=== PATIENT | female | born 1980 | race Caucasian/White ===

== ENCOUNTER → 2017-11-01 | Outpatient (CLI) | payer MEDICARE, OTHER ==
[2017-11-01 13:20] LABS: Basophils % (A) 1 %; Eosinophils % (A) 1 %; HCT 45.8 % (34.0-46.0); Lymphocytes # (A) 1.2 k/uL (1.0-4.8); Lymphocytes % (A) 28 %; MCH 33.6 pg (25.0-35.0); MCHC 32.7 g/dL (31.0-37.0); Macrocytosis Slight; Mean Platelet Volume 7.2; Monocytes # (A) 0.3 k/uL (0-1.0); Monocytes % (A) 6 %; Neutrophils # (A) 2.8 k/uL (1.3-7.7); Neutrophils % (A) 63 %; Platelet Count 338 k/uL (150-450); RBC 4.45 m/uL (3.80-5.40); WBC 4.5 k/uL (3.8-10.6)
[2017-11-01 14:05] LABS: T4, Free (Free Thyroxine) 1.75 ng/dL (0.78-2.19)
== END ==
LOC: LABWHC1 13:09
PROVIDERS: ATTEND Internal Medicine Critical Care Medicine
DX: Z00.00 Encounter for general adult medical examination without abnormal findings (principal); E55.9 Vitamin D deficiency, unspecified; J30.9 Allergic rhinitis, unspecified; M10.9 Gout, unspecified; E03.9 Hypothyroidism, unspecified
CPT/HCPCS: 36415; 80061; 82306; 84439; 84443; 85025

== ENCOUNTER 2019-02-21 12:38 | Inpatient (IN) | payer MEDICARE, OTHER ==
[2019-02-21] MEDS ORDERED: SODIUM CHLORIDE 0.9% 1,000 ML IV ONE (13:42)
[2019-02-21 14:43] LABS: Basophils % (A) 0 %; Eosinophils # (A) 0.1 k/uL (0-0.7); Eosinophils % (A) 1 %; HCT 46.5 % (34.0-46.0); HGB 15.5 gm/dL (11.4-16.0); Lymphocytes # (A) 0.4 k/uL (1.0-4.8); Lymphocytes % (A) 2 %; MCH 33.9 pg (25.0-35.0); MCHC 33.4 g/dL (31.0-37.0); MCV 101.8 fL (80.0-100.0); Macrocytosis Slight; Mean Platelet Volume 7.3; Monocytes # (A) 0.6 k/uL (0-1.0); Monocytes % (A) 3 %; Neutrophils # (A) 21.5 k/uL (1.3-7.7); Neutrophils % (A) 95 %; Platelet Count 383 k/uL (150-450); RBC 4.57 m/uL (3.80-5.40); RDW 14.4 % (11.5-15.5); WBC 22.8 k/uL (3.8-10.6)
[2019-02-21 14:50] LABS: ALT 14 U/L (9-52); AST 16 U/L (14-36); African American GFR (CKD) >90 (>60 ml/min/1.73 sqM); Albumin 3.8 g/dL (3.5-5.0); Alkaline Phosphatase 76 U/L (38-126); Amylase 53 U/L (30-110); Anion Gap 11 mmol/L; Blood Urea Nitrogen 9 mg/dL (7-17); Calcium 8.7 mg/dL (8.4-10.2); Carbon Dioxide 20 mmol/L (22-30); Chloride 103 mmol/L (98-107); Glucose 136 mg/dL (74-99); Lipase 145 U/L (23-300); Potassium 4.5 mmol/L (3.5-5.1); Sodium 134 mmol/L (137-145); Total Bilirubin 0.8 mg/dL (0.2-1.3)
[2019-02-21 15:01] LABS: Budding Yeast,Urine Many /hpf; Mucus,Urine Few /hpf; RBC,Urine >182 /hpf (0-5); Squamous Epithelial Cell,Urine 7 /hpf (0-4); WBC,Urine >182 /hpf (0-5)
[2019-02-21 15:02] LABS: Appearance,Urine Bloody (Clear); Color,Urine Red
--- NOTE | 2019-02-21 15:03 | XR ---
EXAMINATION TYPE: XR chest 2V DATE OF EXAM: 02/21/2019 COMPARISON: NONE TECHNIQUE: PA and lateral views submitted. HISTORY: Pain FINDINGS: The lungs are clear and there is no pneumothorax, pleural effusion, or focal pneumonia. Hypertrophic change of the spine. Mild hyperinflation of the lungs. IMPRESSION: 1. No acute process.
--- NOTE | 2019-02-21 15:28 | CT ---
EXAMINATION TYPE: CT abdomen pelvis w con DATE OF EXAM: 02/21/2019 COMPARISON: None HISTORY: abdominal pain, vomiting CT DLP: 567.8 mGycm Automated exposure control for dose reduction was used. CONTRAST: CT scan of the abdomen pelvis is performed with IV Contrast, patient injected with 100 mL of Isovue 3 00. FINDINGS- LUNG BASES-small pericardial effusion. LIVER/GB-there is severe gallbladder wall thickening and there is diffuse inflammatory change in the right upper quadrant with gallbladder distention. No definite gallstones are seen. There appears to b e pericholecystic fluid. Findings are suggestive of cholecystitis. Mild central intrahepatic biliary dilation noted. PANCREAS-inflammatory change in the right upper quadrant is seen adjacent to the pancreatic head. SPLEEN- No gross abnormality is seen. ADRENALS- No gross abnormality is seen. KIDNEYS/BLADDER- no hydronephrosis nephrolithiasis or renal mass. BOWEL-bowel gas pattern is nonspecific. Appendix is not seen with certainty. Small hiatal hernia note d. Mild diverticulosis sigmoid colon. LYMPH NODES- No greater than 1cm abdominal or pelvic lymph nodes areappreciated. OSSEOUS STRUCTURES- No significant abnormality is seen. OTHER- aorta of normal caliber. Diffuse inflammatory changes in the right upper quadrant. Etiology m ost likely gallbladder correlate clinically for primary or secondary involvement of the gastric antru m, duodenal bulb, or pancreas. Aorta of normal caliber. Mesenteric blood vessels enhance normally portal vein enhances normally. Sma ll amount of free fluid is seen in the pelvis. Bladder is decompressed and limited in assessment. Hyp odensity within the lower uterine segment is nonspecific by CAT scan. IMPRESSION- 1. Bladder is distended with the wall thickening and pericholecystic fluid and there is diffuse infla mmatory change in the right upper quadrant in a pattern most typical of acute cholecystitis. No defin ite gallstones. 2. Diffuse inflammatory changes in the right upper quadrant is seen adjacent to the gallbladder as we ll as the pancreatic head, duodenum and gastric antrum. It does appear to be wall the duodenum and il l definition of the peripancreatic fat around the pancreatic head. This could be secondary involvemen t from severe acute cholecystitis. Correlate clinically to exclude peptic ulcer disease, duodenitis, gastritis or pancreatitis. 3. The heart is only partially included but there does appear to be evidence of a small pericardial e ffusion. Correlate clinically. 4. Small amount of free fluid in the pelvis. Lower uterine segment\endocervical canal is somewhat het erogeneous recommend follow-up pelvic ultrasound.
[2019-02-21] MEDS ORDERED: PIPERACILLIN-TAZOBACTAM 3.375 GM in SODIUM CHLORIDE 0.9% 100 ML IVPB STA (15:50)
--- NOTE | 2019-02-21 16:31 | US ---
EXAMINATION TYPE: US abdomen limited DATE OF EXAM: 02/21/2019 COMPARISON: CT 02/21/2019 CLINICAL HISTORY: cholecystitis. Special needs patient, limited exam due to overlying bowel gas EXAM MEASUREMENTS: Liver Length: 12.8 cm Gallbladder Wall: 0.6 cm CBD: 0.6 cm Right Kidney: 9.0 x 4.5 x 4.3 cm Pancreas: Obscured by bowel gas Liver: Heterogeneous Gallbladder: Stone visualized within neck measuring 2 cm. Pericholecystic fluid visualized, wall thi ckened Evidence for sonographic Joel's sign: Yes CBD: Measuring upper limits of normal, distal portion obscured by bowel gas Right Kidney: No hydronephrosis or masses seen IMPRESSION: 1. Probable fatty liver. 2. Gallbladder wall thickening with cholelithiasis and pericholecystic fluid compatible with acute ch olecystitis.
[2019-02-21] MEDS ORDERED: ONDANSETRON 4 MG/2 ML VIAL IVP STA (16:34)
[2019-02-21] MEDS ORDERED: MORPHINE SULFATE 2 MG/ML SYRINGE IVP STA (16:34)
[2019-02-21] MEDS ORDERED: LEVOFLOXACIN 250MG-D5W PMX 750 MG in DEXTROSE/WATER 1 50ML.BAG IVPB STA (16:36)
[2019-02-21] MEDS ORDERED: metroNIDAZOLE-NS PMX 500 MG in SALINE 1 100ML.BAG IVPB STA (16:36)
[2019-02-21] MEDS ORDERED: LEVOFLOXACIN 750MG-D5W PMX 750 MG in DEXTROSE/WATER 1 150ML.BAG IVPB STA (16:38)
[2019-02-21] MEDS ORDERED: NALOXONE 0.4 MG/ML 1 ML VIAL IV PRN (17:00)
--- NOTE | 2019-02-21 17:07 | ED ---
Nausea/Vomiting/Diarrhea HPI - General Chief complaint: Nausea/Vomiting/Diarrhea Stated complaint: Vomiting Time Seen by Provider: 02/21/19 13:36 Source: patient, family Mode of arrival: ambulatory - History of Present Illness Initial comments: 38-year-old female history of Down syndrome and previous. Oxygen presents today for chief complaint of bilious vomiting. Patient is nonverbal. Mother states patient has-been vomiting for the past 23 days. Keep anything down. She states she is coughing as if she is in pain. She cannot really localize the tenderness. She states patient is currently menstruating this rubbing the upper stomach. Mom denies any diarrhea she denies any hematemesis melena or hematochezia. Remaining review of systems negative per mother. - Related Data Home Medications Medication Instructions Recorded Confirmed Cholecalciferol (Vitamin D3) 500 unit PO Q7D 02/21/19 02/21/19 [Vitamin D3] Clindamycin Phosphate [Cleocin T] 1 applicate TOPICAL HS 02/21/19 02/21/19 Lansoprazole [Prevacid] 30 mg PO HS 02/21/19 02/21/19 Levothyroxine Sodium [Synthroid] 75 mcg PO DAILY 02/21/19 02/21/19 Loratadine Oral Soln [Claritin 5 mg PO DAILY 02/21/19 02/21/19 Oral Soln] Montelukast Sodium [Singulair] 10 mg PO HS 02/21/19 02/21/19 Norethindrone-E.estradiol-Iron 1 tab PO HS 02/21/19 02/21/19 [Junel Fe 1 mg-20 Mcg Tablet] Pseudoephedrine HCl [Children's 15 mg PO HS 02/21/19 02/21/19 Sudafed] Ranitidine Syrup [Zantac Syrup] 75 mg PO QAM 02/21/19 02/21/19 Triamcinolone 0.1% Cream [Kenalog 1 applicatio TOPICAL BID 02/21/19 02/21/19 0.1% Cream] Veramyst 27.5mcg Oral 1 spray EA NOSTRIL BID 02/21/19 02/21/19 Allergies Allergy/AdvReac Type Severity Reaction Status Date / Time [facility] Allergy Unknown Verified 02/21/19 14:25 Review of Systems ROS Statement: Those systems with pertinent positive or pertinent negative responses have been documented in the HPI. ROS Other: All systems not noted in ROS Statement are negative. Past Medical History Past Medical History: GERD/Reflux, Thyroid Disorder History of Any Multi-Drug Resistant Organisms: None Reported Past Surgical History: Adenoidectomy, Ear Surgery, Tonsillectomy Additional Past Surgical History / Comment(s): pancreatic surgery, tongue reduction Past Psychological History: No Psychological Hx Reported Smoking Status: Never smoker Past Alcohol Use History: None Reported Past Drug Use History: None Reported General Exam - General Exam Comments Initial Comments: General: The patient is awake and alert, appears uncomfortable Eye: Pupils are equal, round and reactive to light, extra-ocular movements are intact. No nystagmus. There is normal conjunctiva bilaterally. No signs of icterus. Ears, nose, mouth and throat: There are moist mucous membranes and no oral lesions. Neck: The neck is supple, there is no tenderness or JVD. Cardiovascular: There is a regular rate and rhythm. No murmur, rub or gallop is appreciated. Respiratory: Lungs are clear to auscultation, respirations are non-labored, breath sounds are equal. No wheezes, stridor, rales, or rhonchi. Gastrointestinal: Soft, non-distended, patient tender diffusely upper abdomen without masses or organomegaly noted. There is no rebound or guarding present. No CVA tenderness. Bowel sounds are unremarkable. Musculoskeletal: Normal ROM, no tenderness. Strength 5/5. Sensation intact. Pulses equal bilaterally 2+. Neurological: A&O x 3. CN II-XII intact, There are no obvious motor or sensory deficits. Coordination appears grossly intact. Speech is normal. Skin: Skin is warm and dry and no rashes or lesions are noted. Psychiatric: On verbal, cooperative. Course Vital Signs 02/21/19 12:50 Temperature 98 F Pulse Rate 111 H Respiratory 16 Rate Blood Pressure 92/75 O2 Sat by Pulse 97 Oximetry Medical Decision Making - Medical Decision Making 38-year-old female presenting pain. Nonverbal. Mother states she has been fussy and vomiting. Bilious. CT of the abdomen obtained given patient's nonverbal status and unable to localize pain. Revealing diffuse infiltrate changes in the gallbladder consistent with acute cholecystitis. Ultrasound confirmed acute cholecystitis. No evidence of choledocholithiasis. Patient has leukocytosis.The elevation of alk phos or transaminases. Patient be admitted for surgical removal. Patient's family requesting Dr. Case. Patient ordered NPO, given metronidazole and levoquin. IV analgesic. Medicine on consult. Patient family agreeable [facility] careplan and admission. Dr Freeman spoke with Dr. Case. - Lab Data Result diagrams: 02/21/19 14:27 02/21/19 14:27 Lab Results 02/21/19 02/21/19 02/21/19 Range/Units 14:27 14:27 14:27 WBC 22.8 H (3.8-10.6) k/uL RBC 4.57 (3.80-5.40) m/uL Hgb 15.5 (11.4-16.0) gm/dL Hct 46.5 H (34.0-46.0) % MCV 101.8 H (80.0-100.0) fL MCH 33.9 (25.0-35.0) pg MCHC 33.4 (31.0-37.0) g/dL RDW 14.4 (11.5-15.5) % Plt Count 383 (150-450) k/uL Neutrophils % 95 % Lymphocytes % 2 % Monocytes % 3 % Eosinophils % 1 % Basophils % 0 % Neutrophils # 21.5 H (1.3-7.7) k/uL Lymphocytes # 0.4 L (1.0-4.8) k/uL Monocytes # 0.6 (0-1.0) k/uL Eosinophils # 0.1 (0-0.7) k/uL Basophils # 0.0 (0-0.2) k/uL Macrocytosis Slight Sodium 134 L (137-145) mmol/L Potassium 4.5 (3.5-5.1) mmol/L Chloride 103 (98-107) mmol/L Carbon Dioxide 20 L (22-30) mmol/L Anion Gap 11 mmol/L BUN 9 (7-17) mg/dL Creatinine 0.76 (0.52-1.04) mg/dL Est GFR (CKD-EPI)AfAm >90 (>60 ml/min/1.73 sqM) Est GFR (CKD-EPI)NonAf >90 (>60 ml/min/1.73 sqM) Glucose 136 H (74-99) mg/dL Plasma Lactic Acid Keny (0.7-2.0) mmol/L Calcium 8.7 (8.4-10.2) mg/dL Total Bilirubin 0.8 (0.2-1.3) mg/dL AST 16 (14-36) U/L ALT 14 (9-52) U/L Alkaline Phosphatase 76 (38-126) U/L Total Protein 7.0 (6.3-8.2) g/dL Albumin 3.8 (3.5-5.0) g/dL Amylase 53 (30-110) U/L Lipase 145 (23-300) U/L TSH 1.150 (0.465-4.680) mIU/L Urine Color Red Urine Appearance Bloody H (Clear) Urine RBC >182 H (0-5) /hpf Urine WBC >182 H (0-5) /hpf Urine WBC Clumps Many H (None) /hpf Ur Squamous Epith Cells 7 H (0-4) /hpf Urine Mucus Few H (None) /hpf Urine Yeast (Budding) Many H (None) /hpf 02/21/19 Range/Units 14:39 WBC (3.8-10.6) k/uL RBC (3.80-5.40) m/uL Hgb (11.4-16.0) gm/dL Hct (34.0-46.0) % MCV (80.0-100.0) fL MCH (25.0-35.0) pg MCHC (31.0-37.0) g/dL RDW (11.5-15.5) % Plt Count (150-450) k/uL Neutrophils % % Lymphocytes % % Monocytes % % Eosinophils % % Basophils % % Neutrophils # (1.3-7.7) k/uL Lymphocytes # (1.0-4.8) k/uL Monocytes # (0-1.0) k/uL Eosinophils # (0-0.7) k/uL Basophils # (0-0.2) k/uL Macrocytosis Sodium (137-145) mmol/L Potassium (3.5-5.1) mmol/L Chloride (98-107) mmol/L Carbon Dioxide (22-30) mmol/L Anion Gap mmol/L BUN (7-17) mg/dL Creatinine (0.52-1.04) mg/dL Est GFR (CKD-EPI)AfAm (>60 ml/min/1.73 sqM) Est GFR (CKD-EPI)NonAf (>60 ml/min/1.73 sqM) Glucose (74-99) mg/dL Plasma Lactic Acid Keny 1.4 (0.7-2.0) mmol/L Calcium (8.4-10.2) mg/dL Total Bilirubin (0.2-1.3) mg/dL AST (14-36) U/L ALT (9-52) U/L Alkaline Phosphatase (38-126) U/L Total Protein (6.3-8.2) g/dL Albumin (3.5-5.0) g/dL Amylase (30-110) U/L Lipase (23-300) U/L TSH (0.465-4.680) mIU/L Urine Color Urine Appearance (Clear) Urine RBC (0-5) /hpf Urine WBC (0-5) /hpf Urine WBC Clumps (None) /hpf Ur Squamous Epith Cells (0-4) /hpf Urine Mucus (None) /hpf Urine Yeast (Budding) (None) /hpf Disposition Clinical Impression: Cholecystitis Disposition: ADMITTED IP TO THIS [facility] Condition: Stable Is patient prescribed a controlled substance at d/c from ED?: No Referrals: Julia Rm MD [Primary Care Provider] - 1-2 days Time of Disposition: 17:06 Decision to Admit Reason: Admit from EC Decision Date: 02/21/19 Decision Time: 17:07
--- NOTE | 2019-02-21 18:33 | P.GSHP ---
History of Present Illness H&P Date: 02/21/19 Chief Complaint: lethargy, vomiting The patient is a 38 year old female who was brought in by her parents with lethargy, vomiting and looking ill. The patient has Down syndrome and is nonverbal.The patient usually very active. Yesterday morning the parents noted she was very lethargic and either laid in bed or on the floor all day. She had an episode of emesis yesterday. She was essentially the same today so they brought her into the emergency department for evaluation. The patient normally does not complain of pain. They had not noticed any change in appetite until Sunday. No jaundice or obvious fever. She did look clammy. - Constitutional Constitutional: Reports as per HPI Past Medical History Past Medical History: GERD/Reflux, Thyroid Disorder History of Any Multi-Drug Resistant Organisms: None Reported Past Surgical History: Adenoidectomy, Ear Surgery, Tonsillectomy Additional Past Surgical History / Comment(s): Gastrojejunal bypass of an annular pancreas, appendectomy, tongue reduction Past Psychological History: No Psychological Hx Reported Smoking Status: Never smoker Past Alcohol Use History: None Reported Past Drug Use History: None Reported Medications and Allergies Home Medications Medication Instructions Recorded Confirmed Type Cholecalciferol (Vitamin D3) 500 unit PO Q7D 02/21/19 02/21/19 History [Vitamin D3] Clindamycin Phosphate [Cleocin T] 1 applicate TOPICAL HS 02/21/19 02/21/19 History Lansoprazole [Prevacid] 30 mg PO HS 02/21/19 02/21/19 History Levothyroxine Sodium [Synthroid] 75 mcg PO DAILY 02/21/19 02/21/19 History Loratadine Oral Soln [Claritin 5 mg PO DAILY 02/21/19 02/21/19 History Oral Soln] Montelukast Sodium [Singulair] 10 mg PO HS 02/21/19 02/21/19 History Norethindrone-E.estradiol-Iron 1 tab PO HS 02/21/19 02/21/19 History [Junel Fe 1 mg-20 Mcg Tablet] Pseudoephedrine HCl [Children's 15 mg PO HS 02/21/19 02/21/19 History Sudafed] Ranitidine Syrup [Zantac Syrup] 75 mg PO QAM 02/21/19 02/21/19 History Triamcinolone 0.1% Cream [Kenalog 1 applicatio TOPICAL BID 02/21/19 02/21/19 History 0.1% Cream] Veramyst 27.5mcg [place] 1 spray EA NOSTRIL BID 02/21/19 02/21/19 History Allergies Allergy/AdvReac Type Severity Reaction Status Date / Time cefaclor [From [facility]] Allergy Unknown Verified 02/21/19 14:25 Surgical - Exam Osteopathic Statement: *. No significant issues noted on an osteopathic structural exam other than those noted in the History and Physical/Consult. Vital Signs Temp Pulse Resp BP Pulse Ox 98 F 111 H 16 92/75 97 02/21/19 12:50 02/21/19 12:50 02/21/19 12:50 02/21/19 12:50 02/21/19 12:50 - General well developed, well nourished, no distress - Eyes normal ocular movement - Neck trachea midline - Respiratory normal expansion, normal respiratory effort - Cardiovascular Rhythm: regular - Abdomen Abdomen: soft, tender (There is probably tenderness in the right upper quadrant. She raises her eyebrows when palpating the right upper quadrant.), surgical scars (A transverse scars noted in the mid abdomen ) Hernia: no incisional Results - Labs 02/21/19 14:27 02/21/19 14:27 Abnormal Lab Results - Last 24 Hours (Table) 02/21/19 02/21/19 02/21/19 Range/Units 14:27 14:27 14:27 WBC 22.8 H (3.8-10.6) k/uL Hct 46.5 H (34.0-46.0) % MCV 101.8 H (80.0-100.0) fL Neutrophils # 21.5 H (1.3-7.7) k/uL Lymphocytes # 0.4 L (1.0-4.8) k/uL Sodium 134 L (137-145) mmol/L Carbon Dioxide 20 L (22-30) mmol/L Glucose 136 H (74-99) mg/dL Urine Appearance Bloody H (Clear) Urine RBC >182 H (0-5) /hpf Urine WBC >182 H (0-5) /hpf Urine WBC Clumps Many H (None) /hpf Ur Squamous Epith Cells 7 H (0-4) /hpf Urine Mucus Few H (None) /hpf Urine Yeast (Budding) Many H (None) /hpf Diabetes panel 02/21/19 Range/Units 14:27 Sodium 134 L (137-145) mmol/L Potassium 4.5 (3.5-5.1) mmol/L Chloride 103 (98-107) mmol/L Carbon Dioxide 20 L (22-30) mmol/L BUN 9 (7-17) mg/dL Creatinine 0.76 (0.52-1.04) mg/dL Glucose 136 H (74-99) mg/dL Calcium 8.7 (8.4-10.2) mg/dL AST 16 (14-36) U/L ALT 14 (9-52) U/L Alkaline Phosphatase 76 (38-126) U/L Total Protein 7.0 (6.3-8.2) g/dL Albumin 3.8 (3.5-5.0) g/dL Thyroid panel 02/21/19 Range/Units 14:27 TSH 1.150 (0.465-4.680) mIU/L Calcium panel 02/21/19 Range/Units 14:27 Calcium 8.7 (8.4-10.2) mg/dL Albumin 3.8 (3.5-5.0) g/dL Pituitary panel 02/21/19 Range/Units 14:27 Sodium 134 L (137-145) mmol/L Potassium 4.5 (3.5-5.1) mmol/L Chloride 103 (98-107) mmol/L Carbon Dioxide 20 L (22-30) mmol/L BUN 9 (7-17) mg/dL Creatinine 0.76 (0.52-1.04) mg/dL Glucose 136 H (74-99) mg/dL Calcium 8.7 (8.4-10.2) mg/dL TSH 1.150 (0.465-4.680) mIU/L Adrenal panel 02/21/19 Range/Units 14:27 Sodium 134 L (137-145) mmol/L Potassium 4.5 (3.5-5.1) mmol/L Chloride 103 (98-107) mmol/L Carbon Dioxide 20 L (22-30) mmol/L BUN 9 (7-17) mg/dL Creatinine 0.76 (0.52-1.04) mg/dL Glucose 136 H (74-99) mg/dL Calcium 8.7 (8.4-10.2) mg/dL Total Bilirubin 0.8 (0.2-1.3) mg/dL AST 16 (14-36) U/L ALT 14 (9-52) U/L Alkaline Phosphatase 76 (38-126) U/L Total Protein 7.0 (6.3-8.2) g/dL Albumin 3.8 (3.5-5.0) g/dL - Imaging CT scan - abdomen: report reviewed, image reviewed Assessment and Plan (1) Down syndrome Current Visit: Yes Status: Acute Code(s): Q90.9 - DOWN SYNDROME, UNSPECIFIED SNOMED Code(s): 16338670 (2) Annular pancreas Current Visit: Yes Status: Acute Code(s): Q45.1 - ANNULAR PANCREAS SNOMED Code(s): 60548019 (3) Cholecystitis Current Visit: Yes Status: Acute Code(s): K81.9 - CHOLECYSTITIS, UNSPECIFIED SNOMED Code(s): 56711810 Plan: The patient will be admitted. IV fluids and IV antibiotics. DVT and ulcer prophylaxis. Antibiotics or pain medication if needed. Laparoscopic cholecystectomy possible open. The procedure risks and complications were discussed. She is at higher risk for intra-abdominal adhesions due to the upper abdominal surgery. Questions were encouraged and answered. I'll perform this for her tomorrow.
[2019-02-21 21:58] VITALS: BMI 29.9
[2019-02-22] MEDS: metroNIDAZOLE-NS PMX 500 MG in SALINE 1 100ML.BAG IVPB SCH ×3 (00:08→16:12)
[2019-02-22] MEDS: MORPHINE SULFATE 4 MG/ML SYRINGE IV PRN ×2 (00:09→07:51)
[2019-02-22] MEDS: SODIUM CHLORIDE 0.9% 1,000 ML IV SCH ×4 (00:09→23:18)
[2019-02-22] MEDS: PANTOPRAZOLE 40 MG/10 ML VIAL IVP SCH (07:51)
[2019-02-22 08:29] LABS: HGB 12.9 gm/dL (11.4-16.0); MCH 33.7 pg (25.0-35.0); MCHC 31.6 g/dL (31.0-37.0); MCV 106.7 fL (80.0-100.0); Macrocytosis Moderate; Mean Platelet Volume 6.8; Platelet Count 298 k/uL (150-450); RBC 3.84 m/uL (3.80-5.40); RDW 13.5 % (11.5-15.5); WBC 18.4 k/uL (3.8-10.6)
[2019-02-22 08:36] LABS: African American GFR (CKD) >90 (>60 ml/min/1.73 sqM); Albumin 2.7 g/dL (3.5-5.0); Anion Gap 7 mmol/L; Blood Urea Nitrogen 9 mg/dL (7-17); Calcium 7.4 mg/dL (8.4-10.2); Carbon Dioxide 19 mmol/L (22-30); Chloride 108 mmol/L (98-107); Glucose 90 mg/dL (74-99); Sodium 134 mmol/L (137-145); Total Bilirubin 0.9 mg/dL (0.2-1.3); Total Protein 5.6 g/dL (6.3-8.2)
[2019-02-22 08:37] LABS: ALT 18 U/L (9-52); AST 34 U/L (14-36); Alkaline Phosphatase 49 U/L (38-126); Potassium 4.6 mmol/L (3.5-5.1)
[2019-02-22] MEDS ORDERED: IV FLUID CONTINUATION 1,000 ML IV ONE ×2 (09:25)
[2019-02-22] MEDS ORDERED: LIDOCAINE 1% 20 ML VIAL (10MG/ML) FOR IV START INTRADERMA PRN (09:32)
[2019-02-22] MEDS ORDERED: ONDANSETRON 4 MG/2 ML VIAL IVP PRN (09:32)
--- NOTE | 2019-02-22 09:47 | P.PN ---
Progress Note - Text Progress Note Date: 02/22/19 Mothers questions answered. To OR
[2019-02-22] MEDS ORDERED: SCOPOLAMINE 1.5MG/72HR PATCH TRANSDERM ONE (09:49)
[2019-02-22] MEDS ORDERED: DEXAMETHASONE SOD PHOSPHATE 10 MG/ML 1 ML VIAL IV ONE ×2 (09:50)
[2019-02-22] MEDS ORDERED: ONDANSETRON 4 MG/2 ML VIAL IVP ONE (09:52)
[2019-02-22] MEDS ORDERED: NEOSTIGMINE 1 MG/ML 10 ML VIAL ONE (09:58)
[2019-02-22] MEDS ORDERED: GLYCOPYRROLATE 0.2 MG/ML 2 ML VIAL ONE (09:58)
[2019-02-22] MEDS ORDERED: fentaNYL (PF) 50 MCG/ML 2 ML AMP ONE (09:58)
[2019-02-22] MEDS ORDERED: LIDOCAINE 1% INJ 10MG/ML (20 ML MDV) ONE (09:58)
[2019-02-22] MEDS ORDERED: SUCCINYLCHOLINE CHLORIDE 100 MG/5 ML SYR IV ONE (09:58)
[2019-02-22] MEDS ORDERED: PROPOFOL 10 MG/ML 20 ML VIAL IV ONE (09:58)
[2019-02-22] MEDS ORDERED: ROCURONIUM BROMIDE 10 MG/ML 10 ML VIAL IV ONE (09:58)
[2019-02-22] MEDS ORDERED: MIDAZOLAM 2 MG/2 ML VIAL ONE (09:58)
[2019-02-22] MEDS ORDERED: BUPIVACAINE (PF) 0.25% 30 ML VIAL SQ ONE (10:27)
[2019-02-22] MEDS ORDERED: LACTATED RINGERS 1,000 ML IV ONE (11:27)
[2019-02-22] MEDS ORDERED: HYDROmorphone 0.5 MG/0.5 ML SYRINGE IVP PRN (11:49)
[2019-02-22] MEDS ORDERED: traMADol 50 MG TAB PO PRN (11:49)
--- NOTE | 2019-02-22 11:49 | P.OP ---
Date of Procedure: 02/22/19 Preoperative Diagnosis: Cholelithiasis with cholecystitis Postoperative Diagnosis: Cholelithiasis, acute cholecystitis with perforation and abscess Procedure(s) Performed: Attempted laparoscopic cholecystectomy converted to open cholecystectomy Anesthesia: MESERET Surgeon: Theresa Case Estimated Blood Loss (ml): 150 Pathology: other (Gallbladder) Condition: stable Disposition: PACU Indications for Procedure: Patient presented with lethargy and vomiting Description of Procedure: The patient's taken the operative suite where she is prepped and draped in the usual sterile manner under general endotracheal anesthetic. An infraumbilical incision was made. The fascia was grasped and incised. The peritoneum was grasped and incised. A finger sweep is carried out. A balloon trocar is inserted and pneumoperitoneum was established with CO2 gas. Sites are chosen for accessory trochars and these are placed through small skin incisions. The transverse colon was densely adhered to the undersurface of the gallbladder which is inflamed. Dissection was carried out to free up the transverse colon from the gallbladder wall. It was then that there was encountered a abscess with contained perforation. The adhesions medially were much denser than later ally where the abscess was. The she was therefore converted to an open procedure. A right subcostal incision was made. Small bleeding points were controlled with electrocautery. A self-retaining retractor was placed. The gallbladder was dissected free from the undersurface liver in a domed down manner. The remaining adhesions to the transverse colon and its mesentery were taken down. The cystic artery and cystic duct were then able to be identified. They are suture ligated and the gallbladder is removed. The liver bed is examined and small bleeding points are controlled with electrocautery. A drain was placed and brought out through a trocar site. The fascia at the umbilical trocar site was closed with 0 Vicryl. The subcostal incision was closed in a layered manner using 0 PDS. The skin was closed with scott. She tolerated the procedure without difficulty and was taken recovery room in satisfactory condition. According to or personnel, all counts were correct.
[2019-02-22] MEDS ORDERED: KETOROLAC 30 MG/ML 1 ML VIAL IVP SCH (12:00)
[2019-02-22] MEDS: MORPHINE SULFATE 2 MG/ML SYRINGE IV PRN ×3 (12:21→12:47)
[2019-02-22] MEDS: KETOROLAC 30 MG/ML 1 ML VIAL IVP SCH ×2 (12:24→17:46)
[2019-02-22] MEDS: LACTATED RINGERS 1,000 ML IV SCH (13:42)
[2019-02-22] MEDS ORDERED: LEVOFLOXACIN 500MG-D5W PMX 500 MG in DEXTROSE/WATER 1 100ML.BAG IVPB SCH (17:00)
[2019-02-22] MEDS: MONTELUKAST 10 MG TAB PO SCH (21:21)
[2019-02-23] MEDS: metroNIDAZOLE-NS PMX 500 MG in SALINE 1 100ML.BAG IVPB SCH ×2 (00:25→08:40)
[2019-02-23] MEDS: KETOROLAC 30 MG/ML 1 ML VIAL IVP SCH ×5 (00:26→23:52)
[2019-02-23] MEDS: LEVOTHYROXINE 75 MCG TAB PO SCH (05:27)
[2019-02-23] MEDS: SODIUM CHLORIDE 0.9% 1,000 ML IV SCH ×2 (05:28→21:38)
[2019-02-23] MEDS: LACTATED RINGERS 1,000 ML IV SCH (07:01)
[2019-02-23 07:59] LABS: African American GFR (CKD) >90 (>60 ml/min/1.73 sqM); Albumin 2.3 g/dL (3.5-5.0); Anion Gap 8 mmol/L; Blood Urea Nitrogen 10 mg/dL (7-17); Calcium 7.5 mg/dL (8.4-10.2); Carbon Dioxide 18 mmol/L (22-30); Chloride 112 mmol/L (98-107); Glucose 126 mg/dL (74-99); Sodium 138 mmol/L (137-145); Total Bilirubin 0.5 mg/dL (0.2-1.3)
[2019-02-23 08:06] LABS: ALT 43 U/L (9-52); AST 43 U/L (14-36); Alkaline Phosphatase 43 U/L (38-126); Potassium 4.1 mmol/L (3.5-5.1)
[2019-02-23 08:34] LABS: Basophils # (A) 0.1 k/uL (0-0.2); Basophils % (A) 0 %; Eosinophils # (A) 0.2 k/uL (0-0.7); Eosinophils % (A) 1 %; HCT 37.2 % (34.0-46.0); HGB 12.6 gm/dL (11.4-16.0); Lymphocytes # (A) 0.5 k/uL (1.0-4.8); Lymphocytes % (A) 2 %; MCH 35.6 pg (25.0-35.0); MCV 104.7 fL (80.0-100.0); Macrocytosis Slight; Mean Platelet Volume 8.7; Monocytes # (A) 0.7 k/uL (0-1.0); Monocytes % (A) 3 %; Neutrophils # (A) 20.7 k/uL (1.3-7.7); Neutrophils % (A) 93 %; Platelet Count 332 k/uL (150-450); RBC 3.55 m/uL (3.80-5.40); RDW 14.1 % (11.5-15.5); WBC 22.3 k/uL (3.8-10.6)
[2019-02-23] MEDS: PANTOPRAZOLE 40 MG/10 ML VIAL IVP SCH (08:40)
[2019-02-23] MEDS: MORPHINE SULFATE 4 MG/ML SYRINGE IV PRN (11:01)
--- NOTE | 2019-02-23 11:14 | P.PN ---
Subjective Progress Note Date: 02/23/19 Principal diagnosis: Patient is postoperative day one open cholecystectomy for acute cholecystitis with abscess The patient is doing better than preop. The mother says she appears much more alert. Has been ambulating to the bathroom. Mother is not able to get her to cooperate to do coughing or deep breathing. Taking only sips of liquids at this time. No vomiting. Mother did notice teased grinding today. The patient typically does not complain of any pain. Objective - Vital Signs Vital signs: Vital Signs Temp 97.6 F 02/23/19 07:00 Pulse 107 H 02/23/19 07:00 Resp 14 02/23/19 07:00 BP 102/64 02/23/19 07:00 Pulse Ox 93 L 02/23/19 07:00 Intake & Output 02/22/19 02/23/19 02/23/19 18:59 06:59 18:59 Intake Total 1300 400 Output Total 210 130 20 Balance 1090 270 -20 Intake: IV 1300 Intake, IV Titration 400 Amount Levofloxacin 500Mg-D5w 100 Pmx 500 mg In Dextrose/ Water 1 100ml.bag @ 100 mls/hr IVPB Q24H DANNIE Rx#: [id number] Sodium Chloride 0.9% 1, 200 000 ml @ 100 mls/hr IV . Q10H DANNIE Rx#:[id number]-NS PMX 500 100 mg In Saline 1 100ml.bag @ 100 mls/hr IVPB Q8HR DANNIE Rx#:[id number] Output: Drainage 30 80 20 Abdomen 30 80 20 Urine 50 Estimated Blood Loss 180 Other: Voiding Method Toilet Toilet Toilet # Voids 1 - Constitutional General appearance: Present: cooperative, no acute distress - Respiratory Respiratory: bilateral: CTA, diminished (At the bases. Patient does not cooperate with taking a deep breath) - Cardiovascular Rhythm: regular - Gastrointestinal General gastrointestinal: Present: decreased bowel sounds, soft Localized gastrointestinal: surgical scar: diffuse (Dressing intact clean and dry, UVALDO serosanguineous) - Labs CBC & Chem 7: 02/23/19 07:14 02/23/19 07:14 Labs: Abnormal Lab Results - Last 24 Hours (Table) 02/23/19 02/23/19 Range/Units 07:14 07:14 WBC 22.3 H (3.8-10.6) k/uL RBC 3.55 L (3.80-5.40) m/uL MCV 104.7 H (80.0-100.0) fL MCH 35.6 H (25.0-35.0) pg Neutrophils # 20.7 H (1.3-7.7) k/uL Lymphocytes # 0.5 L (1.0-4.8) k/uL Chloride 112 H (98-107) mmol/L Carbon Dioxide 18 L (22-30) mmol/L Glucose 126 H (74-99) mg/dL Calcium 7.5 L (8.4-10.2) mg/dL AST 43 H (14-36) U/L Total Protein 5.0 L (6.3-8.2) g/dL Albumin 2.3 L (3.5-5.0) g/dL Microbiology - Last 24 Hours (Table) 02/23/19 05:45 Urine Culture - Preliminary Urine,Voided Assessment and Plan (1) Down syndrome Current Visit: Yes Status: Acute Code(s): Q90.9 - DOWN SYNDROME, UNSPECIFIED SNOMED Code(s): 65989691 (2) Annular pancreas Current Visit: Yes Status: Acute Code(s): Q45.1 - ANNULAR PANCREAS SNOMED Code(s): 25417045 (3) Cholecystitis Current Visit: Yes Status: Acute Code(s): K81.9 - CHOLECYSTITIS, UNSPECIFIED SNOMED Code(s): 08783236 (4) Abscess, gallbladder Current Visit: Yes Status: Acute Code(s): K81.0 - ACUTE CHOLECYSTITIS SNOMED Code(s): 70296204 Plan: Patient is doing fairly well. I asked nursing to give her some pain medication as the teeth grinding may be a indication of pain. Since she will not cooperate with any sort of pulmonary toilet, and asked the mother to try to encourage ambulation. We'll get her up to a chair. Monitor her oral intake. Continue IV antibiotics. Progressing slowly.
[2019-02-23] MEDS: LORATADINE 10 MG TAB PO SCH (12:30)
[2019-02-23] MEDS: FLUTICASONE 50MCG/SPRAY NASAL 16GM EA NOSTRIL SCH (12:30)
--- NOTE | 2019-02-23 12:51 | P.CON ---
Consult Note - . Consult date: 02/22/19 Assessment/Plan:: Reason for consult _ management of chronic medical conditions Ms. Zavala is a 38-year-old female with Down syndrome, GERD, thyroid disorder brought in by her parents for lethargy and vomiting. The patient is nonverbal. Usually the patient is very active but was found to be lethargic by her parents. Patient was one episode of vomiting. In the emergency patient had an ultrasound of the abdomen and also CAT scan of the abdomen showing severe acute cholecystitis. Patient was taken to the OR this morning, they attempted laparoscopic cholecystectomy but eventually it was converted to open cholecystectomy. The postoperative diagnosis was acute cholecystitis with perforation and abscess. Patient has been transferred to the floors after the surgery. The patient is lying comfortably in the bed. Most of the history is obtained from her mother who is at the bedside and her caregiver. Her mom mentions that she got out of the bed earlier to go to the bathroom. She thinks she looks much better than before taking to the surgery. The patient is also having her periods currently. The patient's urine was positive for mucus and budding yeast, mom does not report any change in her urinary regimen. She denies noticing any strong odor. Patient is currently on antibiotics in the form of levofloxacin and Flagyl. Review of systems -could not be done as the patient is nonverbal. Past Medical History Past Medical History: GERD/Reflux, Thyroid Disorder Additional Past Medical History / Comment(s): vitamin d deficency, down syndrome History of Any Multi-Drug Resistant Organisms: MRSA Date of last positivie culture/infection: 1998 MDRO Source:: foot Past Surgical History: Adenoidectomy, Ear Surgery, Tonsillectomy Additional Past Surgical History / Comment(s): Gastrojejunal bypass of an annular pancreas, tongue reduction Past Anesthesia/Blood Transfusion Reactions: Postoperative Nausea & Vomiting (PONV) Past Psychological History: No Psychological Hx Reported Smoking Status: Never smoker Past Alcohol Use History: None Reported Past Drug Use History: None Reported - Past Family History Mother Family Medical History: Thyroid Disorder Father Family Medical History: No Reported History Medications and Allergies Home Medications Medication Instructions Recorded Confirmed Type Cholecalciferol (Vitamin D3) 500 unit PO Q7D 02/21/19 02/21/19 History [Vitamin D3] Clindamycin Phosphate [Cleocin T] 1 applicate TOPICAL HS 02/21/19 02/21/19 History Lansoprazole [Prevacid] 30 mg PO HS 02/21/19 02/21/19 History Levothyroxine Sodium [Synthroid] 75 mcg PO DAILY 02/21/19 02/21/19 History Loratadine Oral Soln [Claritin 5 mg PO DAILY 02/21/19 02/21/19 History Oral Soln] Montelukast Sodium [Singulair] 10 mg PO HS 02/21/19 02/21/19 History Norethindrone-E.estradiol-Iron 1 tab PO HS 02/21/19 02/21/19 History [Junel Fe 1 mg-20 Mcg Tablet] Pseudoephedrine HCl [Children's 15 mg PO HS 02/21/19 02/21/19 History Sudafed] Ranitidine Syrup [Zantac Syrup] 75 mg PO QAM 02/21/19 02/21/19 History Triamcinolone 0.1% Cream [Kenalog 1 applicatio TOPICAL BID 02/21/19 02/21/19 History 0.1% Cream] Veramyst 27.5mcg [place] 1 spray EA NOSTRIL BID 02/21/19 02/21/19 History Allergies Allergy/AdvReac Type Severity Reaction Status Date / Time cefaclor [From [facility]] Allergy Unknown Verified 02/21/19 14:25 Physical Exam Vitals: Vital Signs Temp Pulse Pulse Pulse Resp BP BP 02/22/19 15:15 91 108/70 02/22/19 15:00 97 103/69 02/22/19 14:45 90 106/71 02/22/19 14:30 86 103/62 02/22/19 14:15 99 110/75 02/22/19 14:00 100 115/74 02/22/19 13:45 101 H 118/75 02/22/19 13:30 101 H 116/77 02/22/19 13:15 97.7 F 106 H 16 86/61 02/22/19 13:00 111 H 16 115/66 02/22/19 12:45 116 H 16 171/74 02/22/19 12:32 107 H 16 166/72 02/22/19 12:24 105 H 16 169/77 02/22/19 12:15 116 H 18 192/90 02/22/19 12:09 116 H 18 153/68 02/22/19 11:54 97.8 F 115 H 18 156/73 02/22/19 09:30 98.4 F 113 H 18 127/69 02/22/19 07:00 98.3 F 111 H 17 110/69 02/22/19 02:00 98.5 F 115 H 16 90/58 02/22/19 00:00 115 H 02/21/19 21:45 97.7 F 116 H 14 90/64 02/21/19 19:19 118 H 17 107/62 Pulse Ox 02/22/19 15:15 02/22/19 15:00 02/22/19 14:45 02/22/19 14:30 02/22/19 14:15 02/22/19 14:00 02/22/19 13:45 02/22/19 13:30 02/22/19 13:15 93 L 02/22/19 13:00 99 02/22/19 12:45 100 02/22/19 12:32 100 02/22/19 12:24 100 02/22/19 12:15 100 02/22/19 12:09 100 02/22/19 11:54 94 L 02/22/19 09:30 94 L 02/22/19 07:00 94 L 02/22/19 02:00 95 02/22/19 00:00 02/21/19 21:45 97 02/21/19 19:19 95 Intake and Output 02/22/19 02/22/19 02/22/19 06:59 14:59 22:59 Intake Total 900 1300 Output Total 180 30 Balance 900 1120 -30 Intake: IV 1300 Intake, IV Titration 900 Amount Sodium Chloride 0.9% 1, 800 000 ml @ 100 mls/hr IV . Q10H [facility] Rx#:[id number] metroNIDAZOLE-NS PMX 500 100 mg In Saline 1 100ml.bag @ 100 mls/hr IVPB Q8HR [facility] Rx#:[id number] Output: Drainage 30 Abdomen 30 Estimated Blood Loss 180 Other: Voiding Method Toilet # Voids 1 Physical exam GEN. APPEARANCE: alert, in no apparent distress HEAD EXAM: atraumatic, normocephalic, normal inspection EYE EXAM: normal appearance, PERRL, EOMI. Absent: scleral icterus, conjunctival injection, periorbital swelling NECK EXAM: Short and webbed RESPIRATORY EXAM: normal lung sounds bilaterally. Slightly diminished at the lower lung bases CARDIOVASCULAR EXAM: regular rate, normal rhythm, normal heart sounds. positive for systolic murmur GI/ABDOMINAL EXAM: soft, hypoactive bowel sounds. UVALDO drain in place with 20-25 mL of sanguinous fluid EXTREMITIES EXAM: No bilateral peripheral edema NEUROLOGICAL EXAM: Patient is awake and follows simple commands. She is nonver bal. SKIN EXAM: warm, dry, intact, normal color. Absent: rash Results CBC & Chem 7: 02/22/19 07:38 02/22/19 07:38 Labs: Abnormal Lab Results - Last 24 Hours (Table) 02/22/19 02/22/19 Range/Units 07:38 07:38 WBC 18.4 H (3.8-10.6) k/uL MCV 106.7 H (80.0-100.0) fL Sodium 134 L (137-145) mmol/L Chloride 108 H (98-107) mmol/L Carbon Dioxide 19 L (22-30) mmol/L Calcium 7.4 L (8.4-10.2) mg/dL Total Protein 5.6 L (6.3-8.2) g/dL Albumin 2.7 L (3.5-5.0) g/dL Thrombosis Risk Factor Assmnt - Choose All That Apply Each Factor Represents 1 point: Obesity (BMI >25) Other Risk Factors: No Other congenital or acquired thrombophilia - If yes, enter type in comment: No Thrombosis Risk Factor Assessment Total Risk Factor Score: 1 Thrombosis Risk Factor Assessment Level: Low Risk ASSESSMENT Acute cholecystitis- status post open cholecystectomy Acute cholecystitis with perforation and abscess Down syndrome GERD /Reflux disease Thyroid disorder History of MRSA infection History of adenoidectomy and tonsillectomy Tongue reduction surgery 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 As the patient's urine culture was showing mucus and meninges urine culture has been ordered. Patient seems to be asymptomatic currently so we'll wait for the cultures to be packed. Mom has questions regarding her medication regimen, all her questions were answered. Further recommendations to follow depending on the progress of the patient.
--- NOTE | 2019-02-23 12:58 | P.PN ---
Subjective Progress Note Date: 02/23/19 Principal diagnosis: Acute cholecystitis- status post open cholecystectomy post op day 1 Ms. Zavala is a 38 female with Down syndrome, GERD, thyroid disorder brought in for lethargy and vomiting. Patient had an ultrasound and a CAT scan of the abdomen showing acute cholecystitis. So the patient was taken for open cholecystectomy and she is postop day 1 today. Patient is nonverbal so most of the history is obtained from her mother who is her caregiver. As per the nursing staff report no acute overnight events reported. Mom mentions that she has noticed the patient has been grinding her teeth more often. Usually the patient does not complain of any pain. Patient did not have a bowel movement. Mom mentions about her ALLERGIES and that she would need Claritin and Flonase to keep her airways patent. Patient's medications and labs have been reviewed: Active Medications Fluticasone Propionate (Flonase Nasal [place]) 1 spray EA NOSTRIL DAILY [facility] Last Admin: 02/23/19 12:30 Dose: Not Given Documented by: Hydromorphone HCl (Dilaudid) 0.5 mg IVP Q3HR PRN PRN Reason: Moderate to Severe Pain Sodium Chloride (Saline 0.9%) 1,000 mls @ 100 mls/hr IV .Q10H [facility] Last Admin: 02/23/19 05:28 Dose: 100 mls/hr Documented by: Levofloxacin 500 mg/ IV (Solution) 100 mls @ 100 mls/hr IVPB Q24H [facility] Last Admin: 02/22/19 17:46 Dose: 100 mls/hr Documented by: Metronidazole 500 mg/ IV (Solution) 100 mls @ 100 mls/hr IVPB Q8HR [facility] Last Admin: 02/23/19 08:40 Dose: 100 mls/hr Documented by: Lactated Ringer's (Lactated Ringers) 1,000 mls @ 20 mls/hr IV .Q24H [facility] Last Admin: 02/23/19 07:01 Dose: Not Given Documented by: Ketorolac Tromethamine (Toradol) 15 mg IVP Q6HR [facility] Stop: 02/24/19 12:01 Last Admin: 02/23/19 12:49 Dose: 15 mg Documented by: Levothyroxine Sodium (Synthroid) 75 mcg PO DAILY@0630 [facility] Last Admin: 02/23/19 05:27 Dose: 75 mcg Documented by: Lidocaine HCl (.Xylocaine 1% Inj (10mg/Ml) For Iv Start) 0.1 ml INTRADERMA PER PROTOCOL PRN PRN Reason: IV Start Loratadine (Claritin) 5 mg PO DAILY [facility] Last Admin: 02/23/19 12:30 Dose: Not Given Documented by: Montelukast Sodium (Singulair) 10 mg PO HS [facility] Last Admin: 02/22/19 21:21 Dose: 10 mg Documented by: Morphine Sulfate (Morphine Sulfate (Inj)) 4 mg IV Q4HR PRN PRN Reason: Severe Pain Last Admin: 02/23/19 11:01 Dose: 4 mg Documented by: Naloxone HCl (Narcan) 0.2 mg IV Q2M PRN PRN Reason: Opioid Reversal Pantoprazole Sodium (Protonix) 40 mg IVP DAILY [facility] Last Admin: 02/23/19 08:40 Dose: 40 mg Documented by: Tramadol HCl (Ultram) 50 mg PO Q6H PRN PRN Reason: Mild to Moderate Pain Objective - Vital Signs Vital signs: Vital Signs Temp 97.6 F 02/23/19 07:00 Pulse 107 H 02/23/19 07:00 Resp 14 02/23/19 07:00 BP 102/64 02/23/19 07:00 Pulse Ox 93 L 02/23/19 07:00 Intake & Output 02/22/19 02/23/19 02/23/19 18:59 06:59 18:59 Intake Total 1300 400 118 Output Total 210 130 20 Balance 1090 270 98 Intake: IV 1300 Intake, IV Titration 400 Amount Levofloxacin 500Mg-D5w 100 Pmx 500 mg In Dextrose/ Water 1 100ml.bag @ 100 mls/hr IVPB Q24H [facility] Rx#: [id number] Sodium Chloride 0.9% 1, 200 000 ml @ 100 mls/hr IV . Q10H [facility] Rx#:[id number] metroNIDAZOLE-NS PMX 500 100 mg In Saline 1 100ml.bag @ 100 mls/hr IVPB Q8HR [facility] Rx#:[id number] Oral 118 Output: Drainage 30 80 20 Abdomen 30 80 20 Urine 50 Estimated Blood Loss 180 Other: Voiding Method Toilet Toilet Toilet # Voids 1 - Exam GEN. APPEARANCE: alert, in no apparent distress HEAD EXAM: atraumatic, normocephalic, normal inspection EYE EXAM: normal appearance, PERRL, EOMI. Absent: scleral icterus, conjunctival injection, periorbital swelling NECK EXAM: Short and webbed RESPIRATORY EXAM: normal lung sounds bilaterally. Slightly diminished at the lower lung bases CARDIOVASCULAR EXAM: regular rate, normal rhythm, normal heart sounds. positive for systolic murmur GI/ABDOMINAL EXAM: soft, hypoactive bowel sounds. UVALDO drain in place with 30 mL of sanguinous fluid EXTREMITIES EXAM: No bilateral peripheral edema NEUROLOGICAL EXAM: Patient is awake and follows simple commands. She is nonverbal. - Labs CBC & Chem 7: 02/23/19 07:14 02/23/19 07:14 Labs: Abnormal Lab Results - Last 24 Hours (Table) 02/23/19 02/23/19 Range/Units 07:14 07:14 WBC 22.3 H (3.8-10.6) k/uL RBC 3.55 L (3.80-5.40) m/uL MCV 104.7 H (80.0-100.0) fL MCH 35.6 H (25.0-35.0) pg Neutrophils # 20.7 H (1.3-7.7) k/uL Lymphocytes # 0.5 L (1.0-4.8) k/uL Chloride 112 H (98-107) mmol/L Carbon Dioxide 18 L (22-30) mmol/L Glucose 126 H (74-99) mg/dL Calcium 7.5 L (8.4-10.2) mg/dL AST 43 H (14-36) U/L Total Protein 5.0 L (6.3-8.2) g/dL Albumin 2.3 L (3.5-5.0) g/dL Microbiology - Last 24 Hours (Table) 02/23/19 05:45 Urine Culture - Preliminary Urine,Voided Assessment and Plan Assessment: ASSESSMENT Acute cholecystitis- status post open cholecystectomy - postoperative day 1 Acute cholecystitis with perforation and abscess Down syndrome GERD /Reflux disease Thyroid disorder History of MRSA infection History of adenoidectomy and tonsillectomy Tongue reduction surgery 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 Discussed with the mom about incentive spirometry, but mom states that she wouldn't do it. So I encouraged to increase ambulation. Continue with GI DVT prophylaxis, antibiotics in the form of levofloxacin and Flagyl. Continue with the rest of her medication regimen and further recommendations to follow depending on the progress of the patient.
[2019-02-23] MEDS: metroNIDAZOLE 500 MG TAB PO SCH ×2 (17:12→23:52)
[2019-02-23] MEDS: LEVOFLOXACIN 500 MG TAB PO SCH (17:12)
[2019-02-23] MEDS: MONTELUKAST 10 MG TAB PO SCH (21:37)
[2019-02-24] MEDS: SODIUM CHLORIDE 0.9% 1,000 ML IV SCH ×2 (01:41→16:47)
[2019-02-24] MEDS: LEVOTHYROXINE 75 MCG TAB PO SCH (05:47)
[2019-02-24] MEDS: KETOROLAC 30 MG/ML 1 ML VIAL IVP SCH ×2 (05:47→11:44)
[2019-02-24] MEDS: LORATADINE 10 MG TAB PO SCH (07:51)
[2019-02-24] MEDS: metroNIDAZOLE 500 MG TAB PO SCH ×2 (07:52→16:47)
[2019-02-24] MEDS: PANTOPRAZOLE 40 MG TABLET PO SCH (07:52)
[2019-02-24] MEDS: FLUTICASONE 50MCG/SPRAY NASAL 16GM EA NOSTRIL SCH (07:54)
[2019-02-24] MEDS: LACTATED RINGERS 1,000 ML IV SCH (07:55)
[2019-02-24 08:16] LABS: Basophils % (A) 0 %; Eosinophils # (A) 0.2 k/uL (0-0.7); Eosinophils % (A) 1 %; HCT 36.2 % (34.0-46.0); HGB 11.4 gm/dL (11.4-16.0); Lymphocytes # (A) 0.9 k/uL (1.0-4.8); Lymphocytes % (A) 5 %; MCHC 31.6 g/dL (31.0-37.0); MCV 104.4 fL (80.0-100.0); Macrocytosis Slight; Mean Platelet Volume 7.4; Monocytes # (A) 0.4 k/uL (0-1.0); Monocytes % (A) 3 %; Neutrophils # (A) 14.4 k/uL (1.3-7.7); Neutrophils % (A) 91 %; Platelet Count 377 k/uL (150-450); RBC 3.46 m/uL (3.80-5.40); RDW 13.6 % (11.5-15.5); WBC 15.9 k/uL (3.8-10.6)
[2019-02-24 08:46] LABS: African American GFR (CKD) >90 (>60 ml/min/1.73 sqM); Anion Gap 6 mmol/L; Blood Urea Nitrogen 13 mg/dL (7-17); Calcium 7.8 mg/dL (8.4-10.2); Carbon Dioxide 20 mmol/L (22-30); Chloride 112 mmol/L (98-107); Glucose 102 mg/dL (74-99); Potassium 3.9 mmol/L (3.5-5.1); Sodium 138 mmol/L (137-145)
--- NOTE | 2019-02-24 10:20 | P.PN ---
Subjective Progress Note Date: 02/24/19 Principal diagnosis: Status post cholecystectomy The patient is postop day 2 from open cholecystectomy for cholecystitis with abscess. She did a little better yesterday per her mother. She was up to a chair and ambulating in the room. Drinking better. Not taking in much food orally. They did give her pain medication when she started to do teeth grinding and that appeared to help. Objective - Vital Signs Vital signs: Vital Signs Temp 98.1 F 02/24/19 07:00 Pulse 110 H 02/24/19 07:00 Resp 17 02/24/19 07:00 BP 112/76 02/24/19 07:00 Pulse Ox 94 L 02/24/19 07:00 Intake & Output 02/23/19 02/24/19 02/24/19 18:59 06:59 18:59 Intake Total 358 500 Output Total 20 70 Balance 338 430 Intake: Intake, IV Titration 500 Amount Sodium Chloride 0.9% 1, 500 000 ml @ 100 mls/hr IV . Q10H [facility] Rx#:[id number] Oral 358 Output: Drainage 20 70 Abdomen 20 70 Other: Voiding Method Toilet Toilet Toilet # Voids 3 3 - Constitutional General appearance: Present: cooperative, no acute distress - Respiratory Details: Does not incorporate was taking deep breaths Respiratory: bilateral: CTA - Cardiovascular Rhythm: regular - Gastrointestinal General gastrointestinal: Present: normal bowel sounds, soft Localized gastrointestinal: surgical scar: diffuse (The incisions are intact clean and dry. No cellulitis or ecchymosis. UVALDO drain is serosanguineous) - Labs CBC & Chem 7: 02/24/19 07:56 02/24/19 07:56 Labs: Abnormal Lab Results - Last 24 Hours (Table) 02/24/19 02/24/19 Range/Units 07:56 07:56 WBC 15.9 H (3.8-10.6) k/uL RBC 3.46 L (3.80-5.40) m/uL MCV 104.4 H (80.0-100.0) fL Neutrophils # 14.4 H (1.3-7.7) k/uL Lymphocytes # 0.9 L (1.0-4.8) k/uL Chloride 112 H (98-107) mmol/L Carbon Dioxide 20 L (22-30) mmol/L Glucose 102 H (74-99) mg/dL Calcium 7.8 L (8.4-10.2) mg/dL Microbiology - Last 24 Hours (Table) 02/23/19 05:45 Urine Culture - Preliminary Urine,Voided Assessment and Plan (1) Down syndrome Current Visit: Yes Status: Acute Code(s): Q90.9 - DOWN SYNDROME, UNSPECIFIED SNOMED Code(s): 42283297 (2) Annular pancreas Current Visit: Yes Status: Acute Code(s): Q45.1 - ANNULAR PANCREAS SNOMED Code(s): 87288095 (3) Cholecystitis Current Visit: Yes Status: Acute Code(s): K81.9 - CHOLECYSTITIS, UNSPECIFIED SNOMED Code(s): 65084778 (4) Abscess, gallbladder Current Visit: Yes Status: Acute Code(s): K81.0 - ACUTE CHOLECYSTITIS SNOMED Code(s): 20117380 Plan: Increase her activity and diet today as tolerated. Continue IV antibiotics. Recheck CBC tomorrow. Likely discharge in the next 24-48 hours on oral antibiotics. Progressing well.
--- NOTE | 2019-02-24 14:42 | P.PN ---
Subjective Progress Note Date: 02/24/19 Principal diagnosis: Acute cholecystitis- status post open cholecystectomy post op day 2 Ms. Zavala is a 38 female with Down syndrome, GERD, thyroid disorder brought in for lethargy and vomiting. Patient had an ultrasound and a CAT scan of the abdomen showing acute cholecystitis. So the patient was taken for open cholecystectomy and she is postop day 1 today. on 02/23/19 - Patient is nonverbal so most of the history is obtained from her mother who is her caregiver. As per the nursing staff report no acute overnight events reported. Mom mentions that she has noticed the patient has been grinding her teeth more often. Usually the patient does not complain of any pain. Patient did not have a bowel movement. Mom mentions about her ALLERGIES and that she would need Claritin and Flonase to keep her airways patent. On 02/24/19 - patient is sitting up in sofa watching cartoon show on her lap top. Mom states that she ate little breakfast but had eaten 80% of her lunch. No bowel movement as of now. Patient is not grinding her teeth anymore. She looks comfortable. Mom wants to know her vitamin D levels and TSH levels. Patient's labs and medications reviewed: Active Medications Fluticasone Propionate (Flonase Nasal [place]) 1 spray EA NOSTRIL DAILY [facility] Last Admin: 02/24/19 07:54 Dose: 1 spray Documented by: Hydromorphone HCl (Dilaudid) 0.5 mg IVP Q3HR PRN PRN Reason: Moderate to Severe Pain Sodium Chloride (Saline 0.9%) 1,000 mls @ 100 mls/hr IV .Q10H [facility] Last Admin: 02/24/19 01:41 Dose: 100 mls/hr Documented by: Lactated Ringer's (Lactated Ringers) 1,000 mls @ 20 mls/hr IV .Q24H [facility] Last Admin: 02/24/19 07:55 Dose: Not Given Documented by: Levofloxacin (Levaquin) 500 mg PO Q24H [facility] Last Admin: 02/23/19 17:12 Dose: 500 mg Documented by: Levothyroxine Sodium (Synthroid) 75 mcg PO DAILY@0630 [facility] Last Admin: 02/24/19 05:47 Dose: 75 mcg Documented by: Lidocaine HCl (.Xylocaine 1% Inj (10mg/Ml) For Iv Start) 0.1 ml INTRADERMA PER PROTOCOL PRN PRN Reason: IV Start Loratadine (Claritin) 5 mg PO DAILY [facility] Last Admin: 02/24/19 07:51 Dose: 5 mg Documented by: Metronidazole (Flagyl) 500 mg PO Q8HR [facility] Last Admin: 02/24/19 07:52 Dose: 500 mg Documented by: Montelukast Sodium (Singulair) 10 mg PO HS [facility] Last Admin: 02/23/19 21:37 Dose: 10 mg Documented by: Morphine Sulfate (Morphine Sulfate (Inj)) 4 mg IV Q4HR PRN PRN Reason: Severe Pain Last Admin: 02/23/19 11:01 Dose: 4 mg Documented by: Naloxone HCl (Narcan) 0.2 mg IV Q2M PRN PRN Reason: Opioid Reversal Pantoprazole Sodium (Protonix) 40 mg PO AC-BRKFST [facility] Last Admin: 02/24/19 07:52 Dose: 40 mg Documented by: Tramadol HCl (Ultram) 50 mg PO Q6H PRN PRN Reason: Mild to Moderate Pain Last Admin: 02/23/19 21:43 Dose: 50 mg Documented by: Objective - Vital Signs Vital signs: Vital Signs Temp 98.1 F 02/24/19 07:00 Pulse 110 H 02/24/19 07:00 Resp 17 02/24/19 07:00 BP 112/76 02/24/19 07:00 Pulse Ox 94 L 02/24/19 07:00 Intake & Output 02/23/19 02/24/19 02/24/19 18:59 06:59 18:59 Intake Total 358 500 180 Output Total 20 70 Balance 338 430 180 Intake: Intake, IV Titration 500 Amount Sodium Chloride 0.9% 1, 500 000 ml @ 100 mls/hr IV . Q10H [facility] Rx#:[id number] Oral 358 180 Output: Drainage 20 70 Abdomen 20 70 Other: Voiding Method Toilet Toilet Toilet # Voids 3 3 - Exam GEN. APPEARANCE: alert, in no apparent distress HEAD EXAM: atraumatic, normocephalic, normal inspection EYE EXAM: normal appearance, PERRL, EOMI. Absent: scleral icterus, conjunctival injection, periorbital swelling NECK EXAM: Short and webbed RESPIRATORY EXAM: normal lung sounds bilaterally. Slightly diminished at the lower lung bases CARDIOVASCULAR EXAM: regular rate, normal rhythm, normal heart sounds. positive for systolic murmur; tachycardia GI/ABDOMINAL EXAM: soft, hypoactive bowel sounds. UVALDO drain in place with 30 mL of sanguinous fluid EXTREMITIES EXAM: No bilateral peripheral edema NEUROLOGICAL EXAM: Patient is awake and follows simple commands. She is nonverbal. - Labs CBC & Chem 7: 02/24/19 07:56 02/24/19 07:56 Labs: Abnormal Lab Results - Last 24 Hours (Table) 02/24/19 02/24/19 Range/Units 07:56 07:56 WBC 15.9 H (3.8-10.6) k/uL RBC 3.46 L (3.80-5.40) m/uL MCV 104.4 H (80.0-100.0) fL Neutrophils # 14.4 H (1.3-7.7) k/uL Lymphocytes # 0.9 L (1.0-4.8) k/uL Chloride 112 H (98-107) mmol/L Carbon Dioxide 20 L (22-30) mmol/L Glucose 102 H (74-99) mg/dL Calcium 7.8 L (8.4-10.2) mg/dL Microbiology - Last 24 Hours (Table) 02/23/19 05:45 Urine Culture - Final Urine,Voided Assessment and Plan Assessment: ASSESSMENT Acute cholecystitis- status post open cholecystectomy - postoperative day 2 Acute cholecystitis with perforation and abscess Down syndrome GERD /Reflux disease Thyroid disorder History of MRSA infection History of adenoidectomy and tonsillectomy Tongue reduction surgery 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 Discussed with the mom about incentive spirometry, but mom states that she wouldn't do it. So I encouraged to increase ambulation. Continue with GI/ DVT prophylaxis, antibiotics in the form of levofloxacin and Flagyl. Continue with the rest of her medication regimen and further recommendations to follow depending on the progress of the patient.
[2019-02-24] MEDS: LEVOFLOXACIN 500 MG TAB PO SCH (16:46)
[2019-02-24] MEDS: MONTELUKAST 10 MG TAB PO SCH (20:13)
[2019-02-25] MEDS: metroNIDAZOLE 500 MG TAB PO SCH ×2 (00:09→08:05)
[2019-02-25] MEDS: SODIUM CHLORIDE 0.9% 1,000 ML IV SCH (00:29)
[2019-02-25] MEDS: LEVOTHYROXINE 75 MCG TAB PO SCH (05:29)
[2019-02-25 07:33] LABS: HCT 37.1 % (34.0-46.0); MCH 34.4 pg (25.0-35.0); MCHC 32.2 g/dL (31.0-37.0); MCV 106.6 fL (80.0-100.0); Macrocytosis Moderate; Mean Platelet Volume 7.1; Platelet Count 398 k/uL (150-450); RBC 3.48 m/uL (3.80-5.40); RDW 13.7 % (11.5-15.5); WBC 9.2 k/uL (3.8-10.6)
[2019-02-25] MEDS: LORATADINE 10 MG TAB PO SCH (08:05)
[2019-02-25] MEDS: PANTOPRAZOLE 40 MG TABLET PO SCH (08:05)
[2019-02-25] MEDS: FLUTICASONE 50MCG/SPRAY NASAL 16GM EA NOSTRIL SCH (08:06)
--- NOTE | 2019-02-25 08:48 | P.PN ---
Subjective Progress Note Date: 02/25/19 The patient had done well yesterday. She had some gagging after oral Flagyl yesterday. This morning she vomited. No fevers or chills. No bowel movement since admission. Objective - Vital Signs Vital signs: Vital Signs Temp 97.7 F 02/25/19 07:00 Pulse 108 H 02/25/19 07:00 Resp 16 02/25/19 07:00 BP 127/69 02/25/19 07:00 Pulse Ox 91 L 02/25/19 07:00 Intake & Output 02/24/19 02/25/19 02/25/19 18:59 06:59 18:59 Intake Total 360 120 Output Total 45 Balance 360 -45 120 Intake: Oral 360 120 Output: Drainage 45 Abdomen 45 Other: Voiding Method Toilet Toilet # Voids 3 2 - Constitutional Constitutional Comment(s): Sleepy General appearance: Present: cooperative - Respiratory Respiratory: bilateral: CTA - Cardiovascular Rhythm: regular - Gastrointestinal General gastrointestinal: Present: normal bowel sounds, soft Localized gastrointestinal: surgical scar: diffuse (Incisions intact clean and dry, UVALDO serosanguineous) - Labs CBC & Chem 7: 02/25/19 07:10 02/24/19 07:56 Labs: Abnormal Lab Results - Last 24 Hours (Table) 02/25/19 Range/Units 07:10 RBC 3.48 L (3.80-5.40) m/uL MCV 106.6 H (80.0-100.0) fL Microbiology - Last 24 Hours (Table) 02/23/19 05:45 Urine Culture - Final Urine,Voided Assessment and Plan (1) Down syndrome Current Visit: Yes Status: Acute Code(s): Q90.9 - DOWN SYNDROME, UNSPECIFIED SNOMED Code(s): 13216536 (2) Annular pancreas Current Visit: Yes Status: Acute Code(s): Q45.1 - ANNULAR PANCREAS SNOMED Code(s): 06819032 (3) Cholecystitis Current Visit: Yes Status: Acute Code(s): K81.9 - CHOLECYSTITIS, UNSPECIFIED SNOMED Code(s): 06138961 (4) Abscess, gallbladder Current Visit: Yes Status: Acute Code(s): K81.0 - ACUTE CHOLECYSTITIS SNOMED Code(s): 55130277 Plan: She had some vomiting, mother feels this is due to the oral Flagyl. That will be discontinued. She will be monitored today. If she has no further vomiting, she'll be discharged on oral Levaquin liquid. I'll see her in the office next week for staple remover. Discharge instructions were discussed with mother.
[2019-02-25 14:14] VITALS: BP 142/85; PULSE 83; RESP 17; TEMP 98.5
--- NOTE | 2019-02-25 14:20 | P.PN ---
Subjective Ms. Zavala is a 38 female with Down syndrome, GERD, thyroid disorder brought in for lethargy and vomiting. Patient had an ultrasound and a CAT scan of the abdomen showing acute cholecystitis. Patient is nonverbal at baseline, mother at bedside with provided most of the information.the patient was taken for open cholecystectomy and she is postop day 3 today. During this procedure patient was found to have perforation and abscess and ended up with open surgery. Patient does not look in pain which is confirmed by the mother that if she wou ld be in pain and she will make gestures would become very obvious and the mother agrees she is not in pain. Patient vomited this morning to just due to Flagyl which was held after that patient tolerates a general diet at lunchtime with no vomiting. Abdominal exam looks benign except for expected tenderness at the surgical site. Patient did not have bowel movement or passing gases. It looks like the surgical team is planning to discharge the patient showing after taking the drain out from her abdominal wound. Mother at bedside thinks her daughter is doing pretty well and she will do better and can be discharged home. Patient hemodynamically stable and his been afebrile. Heart rate 83 and blood pressure 142/85. Labs reviewed and her leukocytosis have results and CBC is back to normal at 9.2K. Rest of labs were unremarkable for significant abnormality. Patient will need to follow up the biopsy results of her gallbladder disease. . Patient currently on Levaquin 500 mg daily which looks help in the patient. Also she is on normal slack 50 with a per hour Objective - Vital Signs Vital signs: Vital Signs Temp 97.7 F 02/25/19 07:00 Pulse 108 H 02/25/19 08:00 Resp 16 02/25/19 08:00 BP 127/69 02/25/19 07:00 Pulse Ox 91 L 02/25/19 07:00 Intake & Output 02/24/19 02/25/19 02/25/19 18:59 06:59 18:59 Intake Total 360 240 Output Total 45 20 Balance 360 -45 220 Intake: Oral 360 240 Output: Drainage 45 20 Abdomen 45 20 Other: Voiding Method Toilet Toilet Toilet # Voids 3 2 - Exam -GENERAL: The patient is alert and oriented x3, not in any acute distress. Patient has the stigmata of Down syndrome. She is nonverbal at baseline HEENT: Pupils are round and equally reacting to light. EOMI. No scleral icterus. No conjunctival pallor. Normocephalic, atraumatic. No pharyngeal erythema. No thyromegaly. CARDIOVASCULAR: S1 and S2 present. No murmurs, rubs, or gallops. PULMONARY: Chest is clear to auscultation, no wheezing or crackles. -ABDOMEN: Soft, tenderness around the wound, mild and expected, nondistended, normoactive bowel sounds. No palpable organomegaly. Surgical wound is closed in dressing is in place with no surrounding cellulitis MUSCULOSKELETAL: No joint swelling or deformity. EXTREMITIES: No cyanosis, clubbing, or pedal edema. NEUROLOGICAL: Gross neurological examination did not reveal any focal deficits. SKIN: No rashes. 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 Patient still have a drain in the surgical site which needs to be taken off as per surgery team. Patient is on Levaquin and she's been afebrile with no leukocytosis and recommended to continue with this therapy to finish her course. Patient is mobile, she is low risk for DVT for now. In pain it looks controlled. Patient will need to follow-up the biopsy results of her cholecystectomy. GI prophylaxis is recommended Patient and her mother was instructed to follow up with her PCP in one week as well as with this primary surgery team as indicated Patient looks medically stable Thank you for consulting us.
--- NOTE | 2019-02-26 13:35 | P.DS ---
Providers Date of admission: 02/22/19 11:49 Expected date of discharge: 02/25/19 Attending physician: Theresa Case Consults: 02/22/19 10:36 Consult Physician Routine Consulting Provider: Aguilar Jamison Consult Reason/Comments: Medical management Do you want consulting provider notified?: Yes Primary care physician: Julia Venturainian - Discharge Diagnosis(es) (1) Down syndrome Status: Acute (2) Annular pancreas Status: Acute (3) Cholecystitis Status: Acute (4) Abscess, gallbladder Status: Acute Hospital Course: The patient was brought to the emergency department by her parents for concerns of lethargy and vomiting. Workup showed evidence of acute cholecystitis. She was admitted the hospital and given IV antibiotics. She was taken to the OR where a laparoscopy was Performed. The pancreas was very edematous and adherent to the transverse colon. She was converted to a open cholecystectomy. There is evidence of an abscess from my a probable perforation of the gallbladder had some undetermined time. The gallbladder was removed. She was given IV antibiotics along with DVT and ulcer prophylaxis. She slowly improved. She did have some vomiting which was felt to be due to the oral Flagyl. She tolerated the IV form but the crushed oral Flagyl would cause her to vomit. Likely due to the taste. That was discontinued and she had no further episodes of emesis. Patient Condition at Discharge: Stable Plan - Discharge Summary Discharge Rx Participant: Yes New Discharge Prescriptions: New RX: traMADol HCL [Ultram] 50 mg PO Q4HR PRN 3 Days #18 tab PRN Reason: Pain Levofloxacin Oral Soln [Levaquin Oral Soln] 500 mg PO DAILY 7 Days #140 ml No Action Montelukast Sodium [Singulair] 10 mg PO HS Clindamycin Phosphate [Cleocin T] 1 applicate TOPICAL HS Triamcinolone 0.1% Cream [Kenalog 0.1% Cream] 1 applicatio TOPICAL BID Pseudoephedrine HCl [Children's Sudafed] 15 mg PO HS Norethindrone-E.estradiol-Iron [Junel Fe 1 mg-20 Mcg Tablet] 1 tab PO HS Loratadine Oral Soln [Claritin Oral Soln] 5 mg PO DAILY Veramyst 27.5mcg [place] 1 spray EA NOSTRIL BID Lansoprazole [Prevacid] 30 mg PO HS Ranitidine Syrup [Zantac Syrup] 75 mg PO QAM Levothyroxine Sodium [Synthroid] 75 mcg PO DAILY Cholecalciferol (Vitamin D3) [Vitamin D3] 500 unit PO Q7D Discharge Medication List Cholecalciferol (Vitamin D3) [Vitamin D3] 500 unit PO Q7D 02/21/19 [History] Clindamycin Phosphate [Cleocin T] 1 applicate TOPICAL HS 02/21/19 [History] Lansoprazole [Prevacid] 30 mg PO HS 02/21/19 [History] Levothyroxine Sodium [Synthroid] 75 mcg PO DAILY 02/21/19 [History] Loratadine Oral Soln [Claritin Oral Soln] 5 mg PO DAILY 02/21/19 [History] Montelukast Sodium [Singulair] 10 mg PO HS 02/21/19 [History] Norethindrone-E.estradiol-Iron [Junel Fe 1 mg-20 Mcg Tablet] 1 tab PO HS 02/21/19 [History] Pseudoephedrine HCl [Children's Sudafed] 15 mg PO HS 02/21/19 [History] Ranitidine Syrup [Zantac Syrup] 75 mg PO QAM 02/21/19 [History] Triamcinolone 0.1% Cream [Kenalog 0.1% Cream] 1 applicatio TOPICAL BID 02/21/19 [History] Veramyst 27.5mcg [place] 1 spray EA NOSTRIL BID 02/21/19 [History] Levofloxacin Oral Soln [Levaquin Oral Soln] 500 mg PO DAILY 7 Days #140 ml 02/25/19 [Rx] RX: traMADol HCL [Ultram] 50 mg PO Q4HR PRN 3 Days #18 tab 02/25/19 [Rx] Follow up Appointment(s)/Referral(s): Theresa Case DO [Doctor of Osteopathic Medicine] - 1 Week Julia Rm MD [Primary Care Provider] - 1-2 days Activity/Diet/Wound Care/Special Instructions: Patient may shower. No tub bath for 1 week. Watch incision for sign of infection. Low fat foods. Call if fever 101 or above, nausea or vomiting Discharge Disposition: HOME SELF-CARE
== END 2019-02-25 18:07 | disposition home or self-care (01) | DRG 415 ==
LOC: EC 12:38 → 4SSUR 17:00 → OBSVTOIN 02-22 11:49
PROVIDERS: ADMIT Surgery; ATTEND Surgery
PROC: 0FT40ZZ Resection of Gallbladder, Open Approach (ICD-10-PCS; principal; 2019-02-22 10:00)
DX: K80.00 Calculus of gallbladder with acute cholecystitis without obstruction (principal); K82.A2 Perforation of gallbladder in cholecystitis; Q45.1 Annular pancreas; B37.49 Other urogenital candidiasis; E07.9 Disorder of thyroid, unspecified; Z53.31 Laparoscopic surgical procedure converted to open procedure; K21.9 Gastro-esophageal reflux disease without esophagitis; Q90.9 Down syndrome, unspecified; T37.3X5A Adverse effect of other antiprotozoal drugs, initial encounter; Z79.890 Hormone replacement therapy; Z79.899 Other long term (current) drug therapy; Z86.14 Personal history of Methicillin resistant Staphylococcus aureus infection; Z83.49 Family history of other endocrine, nutritional and metabolic diseases; E55.9 Vitamin D deficiency, unspecified; Z98.0 Intestinal bypass and anastomosis status
CPT/HCPCS: 36415; 71046; 74177; 76705; 80048; 80053; 81001; 82150; 82652; 83605; 83690; 84443; 85025; 85027; 87086; 88304; 96361; 96365; 96366; 96368; 96375; 99285

== ENCOUNTER → 2020-06-23 | Outpatient (CLI) | payer MEDICARE, OTHER ==
--- NOTE | 2020-06-23 13:42 | MM ---
Reason for exam: screening (asymptomatic). Baseline mammogram. History: Taking hormonal contraceptives for 4 years beginning at age 35. Physical Findings: Nurse did not find any significant physical abnormalities on exam. MG 3D Screening Mammo W/Cad Bilateral CC and MLO view(s) were taken. The breast tissue is heterogeneously dense. This may lower the sensitivity of mammography. There is no discrete abnormality. These results were verbally communicated with the patient and result sheet given to the patient on 06/23/20. ASSESSMENT: Negative, BI-RAD 1 RECOMMENDATION: Routine screening mammogram of both breasts in 1 year.
== END | disposition home or self-care (01) ==
LOC: RADMAMWWP 12:46
PROVIDERS: ATTEND Internal Medicine Critical Care Medicine
DX: Z12.31 Encounter for screening mammogram for malignant neoplasm of breast (principal)
CPT/HCPCS: 77063; 77067

== ENCOUNTER 2020-07-15 17:27 | Emergency (ER) | payer MEDICARE, OTHER ==
[2020-07-15] MEDS ORDERED: IBUPROFEN ORAL SUSP 100 MG/5 ML CUP PO STA (17:58)
--- NOTE | 2020-07-15 18:34 | XR ---
PROCEDURE: XR knee complete RT - 3V DATE AND TIME: 07/15/2020 6:23 PM CLINICAL INDICATION: PHH; pain TECHNIQUE: Department protocol COMPARISON: None FINDINGS: There is a comminuted tibial plateau fracture, with the fracture lines involving the medial and lateral tibial plateau and extending caudally to involve the upper tibia-fibula articulation. Th e lateral view shows downward depression of the posterior plateau. The femoral tibial articulation remains congruent. IMPRESSION: Comminuted tibial plateau fracture.
--- NOTE | 2020-07-15 18:34 | XR ---
PROCEDURE: XR tibia fibula RT - 2V DATE AND TIME: 07/15/2020 6:23 PM CLINICAL INDICATION: PHH; pain after injury TECHNIQUE: Department protocol COMPARISON: None FINDINGS: AP and lateral views of the knee to the ankle were obtained. There is a comminuted tibial plateau fracture, with the fracture lines involving the medial and later al tibial plateau and extending caudally to involve the upper tibia-fibula articulation. The lateral view shows downward depression of the posterior plateau. The femoral tibial articulation remains fredis ruent. Remainder of the tibia and fibula unremarkable. No other findings. IMPRESSION: Comminuted tibial plateau fracture.
--- NOTE | 2020-07-15 18:36 | XR ---
PROCEDURE: XR femur RT - 4V DATE AND TIME: 07/15/2020 6:22 PM CLINICAL INDICATION: PHH; pain TECHNIQUE: Department protocol COMPARISON: None FINDINGS: Imaging obtained from the hip to the knee. 4 views were obtained. There is a comminuted tibial plateau fracture, with the fracture lines involving the medial and later al tibial plateau and extending caudally to involve the upper tibia-fibula articulation. The lateral view shows downward depression of the posterior plateau. Remainder of the femur is unremarkable. Right hip unremarkable. IMPRESSION: Comminuted tibial plateau fracture.
--- NOTE | 2020-07-15 18:37 | XR ---
PROCEDURE: XR Hip Complete RT - 2V DATE AND TIME: 07/15/2020 6:23 PM CLINICAL INDICATION: PHH; pain TECHNIQUE: Department protocol COMPARISON: None FINDINGS: There is no fracture or malalignment. The soft tissues are unremarkable. IMPRESSION: NO ACUTE PROCESS.
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
[2020-07-15 20:48] VITALS: RESP 16
[2020-07-15 21:48] VITALS: BP 116/87; PULSE 72; TEMP 97.8
== END 2020-07-15 21:46 | disposition other institution (70) ==
LOC: EC 17:27
DX: S82.141A Displaced bicondylar fracture of right tibia, initial encounter for closed fracture (principal); K21.9 Gastro-esophageal reflux disease without esophagitis; E07.9 Disorder of thyroid, unspecified; Z79.899 Other long term (current) drug therapy; Z79.890 Hormone replacement therapy; Z79.3 Long term (current) use of hormonal contraceptives; Z88.1 Allergy status to other antibiotic agents; V86.59XA Driver of other special all-terrain or other off-road motor vehicle injured in nontraffic accident, initial encounter; Y92.410 Unspecified street and highway as the place of occurrence of the external cause
CPT/HCPCS: 73502; 73552; 73590; 73562; 99284; 29505; L1830

== ENCOUNTER → 2023-01-03 | Outpatient (CLI) | payer MEDICARE, OTHER ==
--- NOTE | 2023-01-04 10:02 | MM ---
Reason for Exam: Screening (asymptomatic). Last mammogram was performed 2 year(s) and 6 month(s) ago. Patient History: Menarche at age 20. Currently using Hormonal Contraceptives, beginning at age 35 for 4 years. Last menstrual period: 12/13/2022 Risk Values: Naayeli 5 year model risk: 0.4%. NCI Lifetime model risk: 6.6%. Prior Study Comparison: 06/23/2020 Bilateral Screening Mammogram, [facility]. Tissue Density: The breast tissue is heterogeneously dense. This may lower the sensitivity of mammography. Findings: Analyzed By CAD. Asymmetric density upper aspect of the right MLO view in the middle depth is more defined and incompletely disperses on 3-D images. However, no correlate on the CC view. Findings may represent superimposition shadow but further evaluation is recommended. Otherwise, no significant change. Overall Assessment: Incomplete: need additional imaging evaluation, BI-RAD 0 Management: Special View Mammogram of the right breast. Include spot 3-D MLO and 3-D lateral views. Right breast ultrasound if any persisting abnormality. [facility] will attempt to contact patient to return for supplemental views and ultrasound if indicated. Electronically signed and approved by: Dionna Shahid M.D. Radiologist
== END | disposition home or self-care (01) ==
LOC: RADMAMWWP 09:03
PROVIDERS: ATTEND Obstetrics & Gynecology
DX: Z12.31 Encounter for screening mammogram for malignant neoplasm of breast (principal)
CPT/HCPCS: 77063; 77067

== ENCOUNTER → 2023-04-06 | Outpatient (CLI) | payer MEDICARE, OTHER ==
--- NOTE | 2023-04-06 11:40 | USB ---
Reason for Exam: Additional evaluation requested from abnormal screening. Patient History: Menarche at age 20. Currently using Hormonal Contraceptives, beginning at age 35 for 4 years. Risk Values: Anayeli 5 year model risk: 0.4%. NCI Lifetime model risk: 6.6%. Technique: Method: Targeted. Prior Study Comparison: 06/23/2020 Bilateral Screening Mammogram, [facility]. 01/03/2023 Bilateral MG 3D screening mammo w/cad, [facility]. Findings: The whole breast of the right breast, the axilla of the right breast and the retroareolar of the right breast were scanned. A complete US of all four quadrants of the right breast and retro-areolar region were reviewed. The axilla was evaluated. No solid or cystic masses are identified.. Overall Assessment: Negative, BI-RAD 1 Management: Screening Mammogram of both breasts in 6 months. A clinical breast exam by your physician is recommended on an annual basis and results should be correlated with mammographic findings. This exam should not preclude additional follow-up of suspicious palpable abnormalities. Results were given to the patient verbally at the time of exam. Electronically signed and approved by: Eliu Gold D.O.
== END | disposition home or self-care (01) ==
LOC: RADUSWWP 10:40
PROVIDERS: ATTEND Obstetrics & Gynecology
DX: R92.8 Other abnormal and inconclusive findings on diagnostic imaging of breast (principal)

== ENCOUNTER → 2023-05-10 | Outpatient (CLI) | payer MEDICARE, OTHER ==
[2023-05-10 11:31] VITALS: PULSE 81; RESP 16; TEMP 98.3
--- NOTE | 2023-05-10 11:43 | P.GSHP ---
History of Present Illness H&P Date: 05/10/23 Chief Complaint: abnormal right breast mammogram Yessica is a 42 year old mentally challenged non-verbal white female seen with her mother in consultation for Dr. Watson regarding an abnormal right breast mammogram. She had a bilateral mammogram 01-03-23, this showed a ? spot in her right breast. The patient and her gaurdian declined right breast mag views. She had an ultrasound of the right breast on 04-06-23 which was BIRAD 1. There is no report of any palpable change. She had never had surgery on her breast. No recent trauma or infection of her breast. Caffiene: pop 2 cups daily nicotine: none chocolate: occasional BCP: uses them for cyst on her ovaries 6 years hormones: none Family History: mother: thyroid cancer paternal grandmother: breast cancer maternal aunt: small cell cancer Hormonal History: menarche: 17 G0 on BCP regulates periods Surgical History: gallbladder left knee tonsil and adenoid ear surgeries wears hearing aids appy Medical History: downs sydrome Social History: nicotine: none alcohol: none drugs:none - Constitutional Constitutional: Denies chills, Denies fever - EENT Eyes: denies blurred vision, denies pain Ears: bilateral: decreased hearing, deny: tinnitus Ears, nose, mouth and throat: Denies headache, Denies sore throat - Breasts Breasts: bilateral: as per HPI - Cardiovascular Cardiovascular: Denies chest pain, Denies shortness of breath - Respiratory Respiratory: Denies cough, Denies 7 - Gastrointestinal Gastrointestinal: Reports as per HPI, Denies abdominal pain, Denies diarrhea, Denies nausea, Denies vomiting - Genitourinary (Female) Genitourinary: Denies dysuria, Denies hematuria - Menstruation Menstruation: Reports as per HPI - Musculoskeletal Comment: left knee pain, wears braces - Integumentary Comment: sees a gravity prospecting operator Integumentary: Denies pruritus, Denies rash - Neurological Neurological: Denies numbness, Denies weakness - Psychiatric Psychiatric: Denies anxiety, Denies depression - Endocrine Endocrine: Denies fatigue, Denies weight change - Hematologic/Lymphatic Comment: none - Allergic/Immunologic Allergic/Immunologic: Reports seasonal allergies Past Medical History Past Medical History: GERD/Reflux, Thyroid Disorder Additional Past Medical History / Comment(s): vitamin d deficency, down syndrome History of Any Multi-Drug Resistant Organisms: MRSA Date of last positivie culture/infection: 1998 MDRO Source:: foot Past Surgical History: Adenoidectomy, Ear Surgery, Tonsillectomy Additional Past Surgical History / Comment(s): Gastrojejunal bypass of an annular pancreas, tongue reduction Past Anesthesia/Blood Transfusion Reactions: Postoperative Nausea & Vomiting (PONV) Past Psychological History: No Psychological Hx Reported Smoking Status: Never smoker Past Alcohol Use History: None Reported Past Drug Use History: None Reported - Past Family History Mother Family Medical History: Thyroid Disorder Father Family Medical History: No Reported History Medications and Allergies Home Medications Medication Instructions Recorded Confirmed Type Cholecalciferol (Vitamin D3) 500 unit PO Q7D 02/21/19 02/21/19 History [Vitamin D3] Clindamycin Phosphate [Cleocin T] 1 applicate TOPICAL HS 02/21/19 02/21/19 History Lansoprazole [Prevacid] 30 mg PO HS 02/21/19 02/21/19 History Levothyroxine Sodium [Synthroid] 75 mcg PO DAILY 02/21/19 02/21/19 History Loratadine Oral Soln [Claritin 5 mg PO DAILY 02/21/19 02/21/19 History Oral Soln] Montelukast Sodium [Singulair] 10 mg PO HS 02/21/19 02/21/19 History Pseudoephedrine HCl [Children's 15 mg PO HS 02/21/19 02/21/19 History Sudafed] Ranitidine Syrup [Zantac Syrup] 75 mg PO QAM 02/21/19 02/21/19 History Triamcinolone 0.1% Cream [Kenalog 1 applicatio TOPICAL BID 02/21/19 02/21/19 History 0.1% Cream] Veramyst 27.5mcg [place] 1 spray EA NOSTRIL BID 02/21/19 02/21/19 History norethindrone-e.estradioL-iron 1 tab PO HS 02/21/19 02/21/19 History [Junel Fe 1 mg-20 Mcg Tablet] Levofloxacin Oral Soln [Levaquin 500 mg PO DAILY 7 Days #140 ml 02/25/19 Rx Oral Soln] traMADol HCL [Ultram] 50 mg PO Q4HR PRN 3 Days #18 tab 02/25/19 Rx Allergies Allergy/AdvReac Type Severity Reaction Status Date / Time cefaclor [From Ceclor] Allergy Unknown Verified 07/15/20 17:38 Surgical - Exam - General no distress - Eyes normal ocular movement - ENT decreased hearing - Neck trachea midline - Respiratory normal respiratory effort, clear to auscultation - Cardiovascular Heart Sounds: normal: S1, S2 - Integumentary normal turgor - Musculoskeletal has braces - Psychiatric nonverbal Breast Exam: BRA: sports bra XL Inspection: Bilateral grade 3 ptosis Palpation: Right breast: Multi-positional exam no dominant masses or nodules of concern Right axilla: No adenopathy of concern Left breast: Multi-positional exam no dominant masses or nodules of concern Left axilla: No adenopathy of concern Results Mammogram and ultrasound reviewed with Dr. Shahid, the recommendation for a diagnostic mammogram in December was discussed. At this time he feels comfortable to do a bilateral mammogram with a mag view of the right in 6 months Assessment and Plan Assessment: Impression: abnormal right breast mammogram Downs syndroms Plan: Bilateral mammogram in 6 months with mag views of the right breast The right breast be done before the left breast as the patient may not tolerate both being done The patient is seen in consultation with her mother who is very sensitive to the patient's needs. Follow-up at that bilateral mammogram CC: Dr. Watson, Dr. Rm
== END ==
LOC: WWCWWP 10:45
PROVIDERS: ATTEND Surgery
DX: Q90.9 Down syndrome, unspecified (principal); K21.9 Gastro-esophageal reflux disease without esophagitis; E07.9 Disorder of thyroid, unspecified; Z80.3 Family history of malignant neoplasm of breast; Z79.890 Hormone replacement therapy; Z88.1 Allergy status to other antibiotic agents

== ENCOUNTER → 2023-10-26 | Outpatient (CLI) | payer MEDICARE, OTHER ==
--- NOTE | 2023-10-26 14:51 | P.PN ---
Subjective Progress Note Date: 10/26/23 Principal diagnosis: fibrocystic breast changes abnormal right breast mammogram Yessica is a 43 year old mentally challenged non-verbal white female seen with her mother in consultation for Dr. Watson on 05-10-23 regarding an abnormal right breast mammogram. She had a bilateral mammogram 01-03-23, this showed a ? spot in her right breast. The patient and her guardian declined right breast mag views. She had an ultrasound of the right breast on 04-06-23 which was BIRAD 1. There is no report of any palpable change. She had never had surgery on her breast. No recent trauma or infection of her breast. The patient had a bilateral mammogram on 10-08-23 which was BIRAD 1. There have been no complaints of any new lumps masses or nodules in either breast. Caffiene: pop 2 cups daily nicotine: none chocolate: occasional BCP: uses them for cyst on her ovaries 6 years hormones: none Family History: mother: thyroid cancer paternal grandmother: breast cancer maternal aunt: small cell cancer Hormonal History: menarche: 17 G0 on BCP regulates periods Surgical History: gallbladder left knee tonsil and adenoid ear surgeries wears hearing aids appy Medical History: downs sydrome Social History: nicotine: none alcohol: none drugs:none - Constitutional Constitutional: Denies chills, Denies fever - EENT Eyes: denies blurred vision, denies pain Ears: bilateral: decreased hearing, deny: tinnitus Ears, nose, mouth and throat: Denies headache, Denies sore throat - Breasts Breasts: bilateral: as per HPI - Cardiovascular Cardiovascular: Denies chest pain, Denies shortness of breath - Respiratory Respiratory: Denies cough - Gastrointestinal Gastrointestinal: Reports as per HPI, Denies abdominal pain, Denies diarrhea, Denies nausea, Denies vomiting - Genitourinary (Female) Genitourinary: Denies dysuria, Denies hematuria - Menstruation Menstruation: Reports as per HPI - Musculoskeletal Comment: left knee pain, wears braces - Integumentary Comment: sees a machine tool electrician Integumentary: Denies pruritus, Denies rash - Neurological Neurological: Denies numbness, Denies weakness - Psychiatric Psychiatric: Denies anxiety, Denies depression - Endocrine Endocrine: Denies fatigue, Denies weight change - Hematologic/Lymphatic Comment: none - Allergic/Immunologic Allergic/Immunologic: Reports seasonal allergies Past Medical History Past Medical History: GERD/Reflux, Thyroid Disorder Additional Past Medical History / Comment(s): vitamin d deficency, down syndrome History of Any Multi-Drug Resistant Organisms: MRSA Date of last positivie culture/infection: 1998 MDRO Source:: foot Past Surgical History: Adenoidectomy, Ear Surgery, Tonsillectomy Additional Past Surgical History / Comment(s): Gastrojejunal bypass of an annular pancreas, tongue reduction Past Anesthesia/Blood Transfusion Reactions: Postoperative Nausea & Vomiting (PONV) Past Psychological History: No Psychological Hx Reported Smoking Status: Never smoker Past Alcohol Use History: None Reported Past Drug Use History: None Reported - Past Family History Mother Family Medical History: Thyroid Disorder Father Family Medical History: No Reported History Medications and Allergies Home Medications Medication Instructions Recorded Confirmed Type Cholecalciferol (Vitamin D3) 500 unit PO Q7D 02/21/19 02/21/19 History [Vitamin D3] Clindamycin Phosphate [Cleocin T] 1 applicate TOPICAL HS 02/21/19 02/21/19 History Lansoprazole [Prevacid] 30 mg PO HS 02/21/19 02/21/19 History Levothyroxine Sodium [Synthroid] 75 mcg PO DAILY 02/21/19 02/21/19 History Loratadine Oral Soln [Claritin 5 mg PO DAILY 02/21/19 02/21/19 History Oral Soln] Montelukast Sodium [Singulair] 10 mg PO HS 02/21/19 02/21/19 History Pseudoephedrine HCl [Children's 15 mg PO HS 02/21/19 02/21/19 History Sudafed] Ranitidine Syrup [Zantac Syrup] 75 mg PO QAM 02/21/19 02/21/19 History Triamcinolone 0.1% Cream [Kenalog 1 applicatio TOPICAL BID 02/21/19 02/21/19 History 0.1% Cream] Veramyst 27.5mcg [place] 1 spray EA NOSTRIL BID 02/21/19 02/21/19 History norethindrone-e.estradioL-iron 1 tab PO HS 02/21/19 02/21/19 History [Junel Fe 1 mg-20 Mcg Tablet] Levofloxacin Oral Soln [Levaquin 500 mg PO DAILY 7 Days #140 ml 07/23/19 Rx Oral Soln] traMADol HCL [Ultram] 50 mg PO Q4HR PRN 3 Days #18 tab 02/25/19 Rx Allergies Allergy/AdvReac Type Severity Reaction Status Date / Time cefaclor [From Ceclor] Allergy Unknown Verified 07/15/20 17:38 Objective - Constitutional General appearance: Present: cooperative - EENT Eyes: Present: EOMI ENT: Present: hearing grossly normal - Neck Neck: Present: normal ROM - Respiratory Respiratory: bilateral: CTA - Cardiovascular Heart sounds: normal: S1, S2 - Integumentary Integumentary: Present: normal turgor - Psychiatric Psychiatric: Present: A&O x's 3, appropriate affect, intact judgment & insight - Additional findings Additional findings: Breast Exam: BRA: sports bra XL Inspection: Bilateral grade 3 ptosis Palpation: Right breast: Multi-positional exam no dominant masses or nodules of concern Right axilla: No adenopathy of concern Left breast: Multi-positional exam no dominant masses or nodules of concern Left axilla: No adenopathy of concern Assessment and Plan Assessment: Impression: abnormal right breast mammogram 01-03-23, ultrasound of right breast 04-06-23 BIRAD 1 Downs syndroms bilateral mammogram 10-08-23, BIRAD 1 Plan: Bilateral mammogram in one year The patient is seen in consultation with her mother who is very sensitive to the patient's needs. Follow-up at that bilateral mammogram CC: Dr. Watson, Dr. Rm
[2023-10-26 14:55] VITALS: PULSE 101; RESP 17; TEMP 98.3
== END | disposition home or self-care (01) ==
LOC: WWCWWP 14:25
PROVIDERS: ATTEND Surgery
DX: Q90.9 Down syndrome, unspecified (principal); Z88.1 Allergy status to other antibiotic agents

== ENCOUNTER → 2024-03-06 | Outpatient (CLI) | payer MEDICARE, OTHER ==
--- NOTE | 2024-03-06 15:57 | US ---
EXAMINATION TYPE: US pelvic complete DATE OF EXAM: 03/06/2024 COMPARISON: NONE CLINICAL INDICATION: Female, 43 years old with history of N83.00 FOLLICULAR CYST OF OVARY, UNSPECIFIE D SIDE; Hx of cysts TECHNIQUE: Transabdominal (TA). EXAM MEASUREMENTS: Uterus: 8.1 x 2.1 x 3.3 cm Endometrial Stripe: .4 cm Right Ovary: 1.5 x 1.2 x 1.8 cm Left Ovary: 1.7 x .8 x 1.1 cm 1. Uterus: Anteverted Fluid visualized in cervix. 2. Endometrium: wnl 3. Right Ovary: wnl 4. Left Ovary: wnl 5. Bilateral Adnexa: wnl 6. Posterior cul-de-sac: wnl IMPRESSION: 1. There is fluid seen within the cervix is a nonspecific finding and recommend correlation clinicall y. 2. No evidence of ovarian cyst.
== END | disposition home or self-care (01) ==
LOC: RADUSWWP 15:00 → EEVIPCON 03-07 15:15
PROVIDERS: ATTEND Obstetrics & Gynecology
DX: N83.00 Follicular cyst of ovary, unspecified side
CPT/HCPCS: 76856

== ENCOUNTER → 2024-10-08 | Outpatient (CLI) | payer MEDICARE, OTHER ==
--- NOTE | 2024-10-08 11:35 | MM ---
Reason for Exam: Follow-up at short interval from prior study. Last screening mammogram was performed 12 month(s) ago. Patient History: Menarche at age 20. Patient has no children. Currently using Hormonal Contraceptives, beginning at age 35 for 4 years. Last menstrual period: 09/19/2024 Risk Values: Anayeli 5 year model risk: 0.8%. NCI Lifetime model risk: 9.8%. Prior Study Comparison: 01/03/2023 Bilateral MG 3D screening mammo w/cad, [facility]. 10/08/2023 Bilateral MG 3D diag mammo w/cad [facility], [facility]. Tissue Density: The breasts are heterogeneously dense, which may obscure small masses. Findings: Analyzed By CAD. No significant mass, suspicious microcalcification, or other discrete abnormality is seen. No significant change from priors. Overall Assessment: Negative, BI-RAD 1 Management: Screening Mammogram of both breasts in 1 year. Results were given to the patient verbally at the time of exam. Patient should continue monthly self-breast exams. A clinical breast exam by your physician is recommended on an annual basis. This exam should not preclude additional follow-up of suspicious palpable abnormalities. Note on Anayeli scores and lifetime risk: 1. A Anayeli score greater than 3% is considered moderate risk. If this is the case, consider specialist referral to assess eligibility for a risk reducing agent. 2. If overall lifetime risk for the development of breast cancer is 20% or higher, the patient may qualify for future screening with alternating mammogram and breast MRI. [facility], , 10/08/2024 11:31 AM. Electronically signed and approved by: Dionna Shahid M.D. Radiologist
== END | disposition home or self-care (01) ==
LOC: RADMAMWWP 10:46
PROVIDERS: ATTEND Surgery
DX: R92.8 Other abnormal and inconclusive findings on diagnostic imaging of breast (principal); R92.333 Mammographic heterogeneous density, bilateral breasts; Z79.3 Long term (current) use of hormonal contraceptives
CPT/HCPCS: 77066; G0279; 77062

== ENCOUNTER → 2024-10-10 | Outpatient (CLI) | payer MEDICARE, OTHER ==
[2024-10-10 11:12] VITALS: BP 108/79; PULSE 106; RESP 17; TEMP 97.9
--- NOTE | 2024-10-10 11:18 | P.PN ---
Subjective Progress Note Date: 10/10/24 Principal diagnosis: fibrocystic breast changes Principal diagnosis: fibrocystic breast changes abnormal right breast mammogram Yessica is a 44 year old mentally challenged non-verbal white female seen with her mother in consultation for Dr. Watsno on 05-10-23 regarding an abnormal right breast mammogram. She had a bilateral mammogram 01-03-23, this showed a ? spot in her right breast. The patient and her guardian declined right breast mag views. She had an ultrasound of the right breast on 04-06-23 which was BIRAD 1. There is no report of any palpable change. She had never had surgery on her breast. No recent trauma or infection of her breast. The patient had a bilateral mammogram on 10-08-24 which was BIRAD 1. There have been no complaints of any new lumps masses or nodules in either breast. Caffiene: pop 2 cups daily nicotine: none chocolate: occasional BCP: uses them for cyst on her ovaries 6 years hormones: none Family History: mother: thyroid cancer paternal grandmother: breast cancer maternal aunt: small cell cancer Hormonal History: menarche: 17 G0 on BCP regulates periods Surgical History: gallbladder left knee tonsil and adenoid ear surgeries wears hearing aids appy Medical History: downs sydrome Social History: nicotine: none alcohol: none drugs:none - Constitutional Constitutional: Denies chills, Denies fever - EENT Eyes: denies blurred vision, denies pain Ears: bilateral: decreased hearing, deny: tinnitus Ears, nose, mouth and throat: Denies headache, Denies sore throat - Breasts Breasts: bilateral: as per HPI - Cardiovascular Cardiovascular: Denies chest pain, Denies shortness of breath - Respiratory Respiratory: Denies cough - Gastrointestinal Gastrointestinal: Reports as per HPI, Denies abdominal pain, Denies diarrhea, Denies nausea, Denies vomiting - Genitourinary (Female) Genitourinary: Denies dysuria, Denies hematuria - Menstruation Menstruation: Reports as per HPI - Musculoskeletal Comment: left knee pain, wears braces - Integumentary Comment: sees a mason liner Integumentary: Denies pruritus, Denies rash - Neurological Neurological: Denies numbness, Denies weakness - Psychiatric Psychiatric: Denies anxiety, Denies depression - Endocrine Endocrine: Denies fatigue, Denies weight change - Hematologic/Lymphatic Comment: none - Allergic/Immunologic Allergic/Immunologic: Reports seasonal allergies Past Medical History Past Medical History: GERD/Reflux, Thyroid Disorder Additional Past Medical History / Comment(s): vitamin d deficency, down syndrome History of Any Multi-Drug Resistant Organisms: MRSA Date of last positivie culture/infection: 1998 MDRO Source:: foot Past Surgical History: Adenoidectomy, Ear Surgery, Tonsillectomy Additional Past Surgical History / Comment(s): Gastrojejunal bypass of an an nular pancreas, tongue reduction Past Anesthesia/Blood Transfusion Reactions: Postoperative Nausea & Vomiting (PONV) Past Psychological History: No Psychological Hx Reported Smoking Status: Never smoker Past Alcohol Use History: None Reported Past Drug Use History: None Reported - Past Family History Mother Family Medical History: Thyroid Disorder Father Family Medical History: No Reported History Medications and Allergies Home Medications Medication Instructions Recorded Confirmed Type Cholecalciferol (Vitamin D3) 500 unit PO Q7D 02/21/19 02/21/19 History [Vitamin D3] Clindamycin Phosphate [Cleocin T] 1 applicate TOPICAL HS 02/21/19 02/21/19 History Lansoprazole [Prevacid] 30 mg PO HS 02/21/19 02/21/19 History Levothyroxine Sodium [Synthroid] 75 mcg PO DAILY 02/21/19 02/21/19 History Loratadine Oral Soln [Claritin 5 mg PO DAILY 02/21/19 02/21/19 History Oral Soln] Montelukast Sodium [Singulair] 10 mg PO HS 02/21/19 02/21/19 History Pseudoephedrine HCl [Children's 15 mg PO HS 02/21/19 02/21/19 History Sudafed] Ranitidine Syrup [Zantac Syrup] 75 mg PO QAM 02/21/19 02/21/19 History Triamcinolone 0.1% Cream [Kenalog 1 applicatio TOPICAL BID 02/21/19 02/21/19 History 0.1% Cream] Veramyst 27.5mcg [place] 1 spray EA NOSTRIL BID 02/21/19 02/21/19 History norethindrone-e.estradioL-iron 1 tab PO HS 02/21/19 02/21/19 History [Junel Fe 1 mg-20 Mcg Tablet] Levofloxacin Oral Soln [Levaquin 500 mg PO DAILY 7 Days #140 ml 02/25/19 Rx Oral Soln] traMADol HCL [Ultram] 50 mg PO Q4HR PRN 3 Days #18 tab 02/25/19 Rx Allergies Allergy/AdvReac Type Severity Reaction Status Date / Time cefaclor [From Ceclor] Allergy Unknown Verified 07/15/20 17:38 Objective - Vital Signs Vital signs: Intake & Output 10/09/24 10/10/24 10/10/24 18:59 06:59 18:59 Weight 62.596 kg - Constitutional General appearance: Present: cooperative - EENT Eyes: Present: EOMI ENT: Present: hearing grossly normal - Neck Neck: Present: normal ROM - Respiratory Respiratory: bilateral: CTA - Cardiovascular Rhythm: regular Heart sounds: normal: S1, S2 - Integumentary Integumentary: Present: normal turgor - Musculoskeletal Musculoskeletal: Present: gait normal - Psychiatric Psychiatric: Present: A&O x's 3, appropriate affect, intact judgment & insight - Additional findings Additional findings: Breast Exam: BRA: sports bra XL, bilateral fungal infection Inspection: Bilateral grade 3 ptosis Palpation: Right breast: Multi-positional exam no dominant masses or nodules of concern Right axilla: No adenopathy of concern Left breast: Multi-positional exam no dominant masses or nodules of concern Left axilla: No adenopathy of concern Assessment and Plan Assessment: Impression: abnormal right breast mammogram 01-03-23, ultrasound of right breast 04-06-23 BIRAD 1 Downs syndroms bilateral mammogram 10-08-24, BIRAD 1 bilateral fungal infection Plan: Bilateral mammogram in one year The patient is seen in consultation with her mother who is very sensitive to the patient's needs. Follow-up at that bilateral mammogram nystatin under breast CC: Dr. Rm Additional CC's: Julia Rm
== END ==
LOC: WWCWWP 10:52
PROVIDERS: ATTEND Surgery
DX: N60.11 Diffuse cystic mastopathy of right breast (principal); R92.8 Other abnormal and inconclusive findings on diagnostic imaging of breast; K21.9 Gastro-esophageal reflux disease without esophagitis; Z88.1 Allergy status to other antibiotic agents; Z80.3 Family history of malignant neoplasm of breast; Z79.899 Other long term (current) drug therapy